=== PATIENT | male | born 1935 | race Caucasian/White ===

== ENCOUNTER → 2016-04-22 | Outpatient (CLI) | payer MEDICARE, OTHER ==
[~2016-04-22] MED LIST: AC500T PO; AMLO5TAB2 PO; ASP81CT PO; ASP81TEC PO; CALC-80; CEFD300C3; CYCL10TA9 PO; DCS100C PO; DIPH25TA82 PO; DOXY100C2 PO; ENAL10TA PO; ENAL20TA; ENAL20TA PO; EZET10TA5 PO; HYDR-2890 PO; MTP25TSR PO; NAPR-243 PO; OMEP40CA36 PO; OMG1KC; OMG1KC PO; OSLT75CRX PO; OXYC-12 PO; POTA99TA4; PSYL1PAC15 PO; SULF1TAB38 PO; TICA90TA PO; TRM50T PO; [UNRECOGNIZED DRUG - CODE]; [UNRECOGNIZED DRUG - OTHER]; [UNRECOGNIZED DRUG - OTHER]; [UNRECOGNIZED DRUG - OTHER]; cod liver oil
--- OUTSIDE RECORDS SUMMARY | 2016-04-22 11:08 | XMS REPORT | Continuity of Care Document ---
Author Author [facility] Organization [facility] Address Unknown Phone Unavailable Care Team Providers Care Permit Review Assistant Name Role Phone PCP Unavailable Source Comments Some departments are not documenting in the electronic medical record. If you do not see the information that you expected, contact Release of Information in the Health Information Management department at [phone] for further assistance in locating additional records.[facility] Active Allergies and Adverse Reactions Allergen Noted Date Severity Reactions Comments Aspirin 06/28/2011 ITCHING Tolerates lower doses and tolerates Aleve. Avelox 07/17/2011 UNKNOWN Pt cannot recall reaction but states he is allergic. Azithromycin 07/17/2011 STOMACH UPSET After several days of taking it. Biaxin 06/28/2011 UNKNOWN Pt cannot recall reaction but states he is allergic. Ceftin 06/28/2011 UNKNOWN Cefuroxime 06/28/2011 UNKNOWN Pt cannot recall reaction but states he is allergic. Codeine 06/28/2011 HALLUCINATIONS Darvocet 06/28/2011 HALLUCINATIONS Demerol 06/28/2011 HALLUCINATIONS Erythromycin 06/28/2011 UNKNOWN Metoprolol 07/17/2011 STOMACH UPSET, DIZZINESS Morphine 07/17/2011 SEE COMMENTS Urinary retention and vomiting, tolerates in small amounts, tolerates Fentanyl. Niacin 06/28/2011 UNKNOWN Nsaids (Non-Steroidal 07/17/2011 ITCHING Tolerates Aleve and Anti-Inflammatory Drug) tolerated Vioxx in the past. Plavix 07/17/2011 NAUSEA AND VOMITING, DIZZINESS Ryzolt 07/17/2011 SHORTNESS OF BREATH, ANGIOEDEMA Vjlkdij-Hdr-Aiv Reductase 06/28/2011 MUSCLE PAIN Inhibitors Tricor 06/28/2011 UNKNOWN Zetia 07/17/2011 ITCHING Current Medications Prescription Sig. Disp. Refills Start End Date Status Date Aspirin 81 mg Tab Take 1 Tab by mouth Active daily. Pt states aspirin makes him itch. diphenhydrAMINE Take 25 mg by mouth at Active (BENADRYL) 25 mg capsule bedtime as needed. Pt states he takes 1 tablet every 3 days. ACETAMINOPHEN (TYLENOL Take 650 mg by mouth Active ARTHRITIS PO) three times daily as needed. Active Problems Problem Noted Date Drug reaction 07/05/2011 Overview: All his medication reactions are intolerances or may be delayed hypersensitivity reactions, but none are immediate hypersensitivity reactions except for Tramadol and possibly some of the antibiotic allergies. Therefore none of them would be amenable to desensitization efforts. Demerol, Darvocet, and Codeine cause hallucinations. Morphine in large doses cause urinary retention, tolerates in small amounts and Fentanyl. Ryzolt (Tramadol) causes angioedema and difficulty breathing. Zetia and ASA (NSAIDs except Aleve and Vioxx) cause itching. Azithromycin causes GI upset. Plavix causes nausea and dizziness. Avelox, Cefuroxime, and Biaxin cause reactions that he cannot recall. Statins cause myalgias. Metoprolol causes dizziness and GI upset after two to three doses. - We will request records from his prior hospitalization for pacer implantation to find out more details about his reactions. Itching, dizziness, and GI upset with anti-hypertensives, plavix, and ASA. - Will try Zyrtec daily to control itching. - Will take his BP when he is dizzy again to see if this is anaphylactic hypotension causing these symptoms (no documentation of this per the patient) - Could try Prasugrel instead of Plavix if he requires a stent placement in the future as their is no documentation cross-reactivity of Plavix and Prasugrel (unlike Ticlid). - Would recommend avoidance of all triggering medications of allergies and intolerances, using alternatives whenever possible. Social History Tobacco Use Types Packs/Day Years Used Date Never Smoker Smokeless Tobacco: Never Used Last Filed Vital Signs Vital Sign Reading Time Taken Blood Pressure 126/74 07/05/2011 11:18 AM CDT Pulse 70 07/05/2011 11:18 AM CDT Temperature 36.1 C (96.9 F) 07/05/2011 11:06 AM CDT Respiratory Rate 18 07/05/2011 11:06 AM CDT Height 1.702 m (5' 7") 07/05/2011 11:06 AM CDT Weight 85.186 kg (187 lb 12.8 07/05/2011 11:06 AM CDT oz) Body Mass Index 29.41 07/05/2011 11:06 AM CDT Oxygen Saturation - - Plan of Care Health Maintenance Due Date Last Done Comments Physical (Comprehensive) 1941 Exam Pertussis Vaccine 1945 Tetanus Vaccine 11/19/1951 Shingles Vaccine 1994 Prevnar/Pneumovax (#1) 11/19/1999 Influenza Vaccine 11/29/2014 Results from Last 3 Months Not on file
--- NOTE | 2016-04-22 11:56 | Diagnostic Imaging Report ---
Indication: Lower respiratory infection PA and lateral chest There is a dual-chamber pacemaker. Heart size and pulmonary vascularity are normal. Lungs are clear. There are no effusions or pneumothoraces. Impression: No acute abnormalities in the chest Dictated by: Dictated on workstation # [id number]
== END ==
LOC: RAD 11:04
PROVIDERS: ATTEND Nurse Practitioner Family
DX: J18.9 Pneumonia, unspecified organism (principal)
CPT/HCPCS: 71020

== ENCOUNTER → 2018-05-14 | Outpatient (CLI) | payer MEDICARE, OTHER ==
[~2018-05-14] VITALS: Ht 170.2 cm; Wt 77.1 kg
[~2018-05-14] MED LIST changes: +CATHETER FLUSH 10 ML SYR IV PRN; +REGADENOSON 0.4 MG/5 ML SYR (LEXISCAN) IV ONE
[2018-05-14 08:54] VITALS: BP 150/80
[2018-05-14 08:57] VITALS: BP 147/85
[2018-05-14 08:58] VITALS: BP 145/67
--- NOTE | 2018-05-14 13:11 | Cardiology Stress Test Report ---
Stress Test Report Date of Procedure/Referring: PCP Kishan Sims MD Admitting Physician Imtiaz Solomon MD Baseline Blood Pressure: Blood Pressure Systolic: 145 Blood Pressure Diastolic: 67 Summary & Conclusion: Summary: The patient was brought to the stress lab after informed consent was taken. Stress test was performed according to the Lexiscan protocol. 0.4 mg of IV Lexiscan was given. Low-grade exercise was performed. Baseline EKG showed sinus rhythm at BPM. Initial blood pressure was mmHg. Maximum heart rate was bpm and blood pressure mmHg. Patient did not have any chest pain, arrhythmias or ST segment changes during the stress test. mCi of Myoview were given for rest imaging and mCi of Myoview given for stress imaging. Transient ischemic dilatation score , EF percent. Normal wall motion. Normal myocardial perfusion imaging during rest and stress. Conclusion: Pharmacological stress test was negative for ischemia. Normal LV function with no wall motion abnormalities. Normal myocardial perfusion imaging during rest and stress. Kishan SIMS MD May 14, 2018 13:11
== END ==
LOC: CARD 06:49
PROVIDERS: ATTEND Internal Medicine Interventional Cardiology
DX: I25.10 Atherosclerotic heart disease of native coronary artery without angina pectoris (principal); I49.5 Sick sinus syndrome; I44.2 Atrioventricular block, complete; R06.09 Other forms of dyspnea; Z95.0 Presence of cardiac pacemaker
CPT/HCPCS: 78452; 93017

== ENCOUNTER → 2018-05-20 | Outpatient (CLI) | payer MEDICARE, OTHER ==
[~2018-05-20] MED LIST changes: -CATHETER FLUSH 10 ML SYR IV PRN; -REGADENOSON 0.4 MG/5 ML SYR (LEXISCAN) IV ONE
== END ==
LOC: CARD 10:17
PROVIDERS: ATTEND Internal Medicine Interventional Cardiology
DX: I25.10 Atherosclerotic heart disease of native coronary artery without angina pectoris (principal); I49.5 Sick sinus syndrome; I44.2 Atrioventricular block, complete; R06.09 Other forms of dyspnea; R42 Dizziness and giddiness; Z95.0 Presence of cardiac pacemaker
CPT/HCPCS: 93306

== ENCOUNTER 2018-06-11 08:39 | Day surgery (SDC) | payer MEDICARE, OTHER ==
[2018-06-11] VITALS (9 sets, daily range): BP systolic 136–174; BP diastolic 67–82
[~2018-06-11] VITALS: Ht 170.2 cm; Wt 78.0 kg
[2018-06-11] MEDS ORDERED: HEParin 1000 UNIT/ML (10ML VIAL) FOR BOLUS ONE (08:45)
[2018-06-11] MEDS ORDERED: LIDOCAINE 1% INJ 20 ML 20 ML VIAL ONE (08:45)
[2018-06-11] MEDS ORDERED: NS IV 1000 ML 3,000 ML ONE (08:45)
[2018-06-11] MEDS ORDERED: NS IV 1000 ML 1,000 ML IV SCH ×2 (09:00→12:17)
[2018-06-11 09:11] LABS: HEMOGLOBIN 13.6 G/DL (13.3-17.7); MEAN PLATELET VOLUME 10.1 FL (7.4-10.4); RED CELL DISTRIBUTION WIDTH 14.2 % (10.0-14.5); WHITE BLOOD COUNT 5.1 10^3/uL (4.3-11.0)
[2018-06-11] MEDS ORDERED: METO50TA15 PO (09:14)
[2018-06-11] MEDS ORDERED: ENAL10TA PO (09:14)
[2018-06-11 09:28] LABS: ALBUMIN 4.3 GM/DL (3.2-4.5); BILIRUBIN,TOTAL 1.1 MG/DL (0.1-1.0); CALCIUM 9.4 MG/DL (8.5-10.1); CREATININE SERUM 1.39 MG/DL (0.60-1.30); POTASSIUM 4.5 MMOL/L (3.6-5.0); TOTAL PROTEIN 7.3 GM/DL (6.4-8.2)
[2018-06-11] MEDS ORDERED: CARB1CAP PO (09:29)
[2018-06-11 09:30] LABS: PROTHROMBIN TIME PATIENT 13.5 SEC (12.2-14.7)
[2018-06-11] MEDS ORDERED: MIDAZOLAM 5 MG/5 ML (VERSED) VIAL ONE (11:04)
[2018-06-11] MEDS ORDERED: NITRO DRIP 25000 MCG/D5W 250 ML IV ONE (11:05)
[2018-06-11] MEDS ORDERED: fentaNYL INJECTION 100 MCG/2 ML AMP ONE (11:05)
[2018-06-11] MEDS ORDERED: VERAPAMIL 5 MG/2 ML (CALAN) VIAL IV ONE (11:05)
--- NOTE | 2018-06-11 12:15 | Cardiac Procedure Note-CS/ASA ---
Pre-Procedure Note Pre-Op Procedure Note H&P Reviewed The H&P was reviewed, patient examined and no changes noted. Date H&P Reviewed: Jun 11, 2018 Time H&P Reviewed: 11:00 Conscious Sedation Pre-Proced Time 11:00 ASA Score 3 For ASA 3 and 4: Consider anesthesia and medical clearance. Also, for patients with a history of failed moderate sedation consider anesthesia. Airway Lungs Heart ASA score ASA 1: a normal healthy patient ASA 2: a patient with a mild systemic disease (mid diabetes, controlled hypertension, obesity ASA 3: a patient with a severe systemic disease that limits activity (angina , COPD, prior Myocardial infarction) ASA 4: a patient with an incapacitating disease that is a constant threat to life (CHF, renal failure) ASA 5: a moribund patient not expected to survive 24 hrs. (ruptured aneurysm) ASA 6: a declared brain- patient whose organs are being harvested. For emergent operations, add the letter E after the classification Mallampati Classification Grade 1 Sedation Plan Analgesia, Amnesia, Plan communicated to team members, Discussed options with patient/fam, Discussed risks with patient/fam The patient is an appropriate candidate to undergo the planned procedure, sedation, and anesthesia. The patient immediately re-assessed prior to indication. Kishan LOERA MD Jun 11, 2018 12:15
--- NOTE | 2018-06-11 12:16 | Coronary Angiography Report ---
Coronary Angiography Report DATE OF PROCEDURE: 06/11/18 INDICATION: Shortness of breath, abnormal nuclear stress test. PREOPERATIVE DIAGNOSIS: Shortness of breath, abnormal nuclear stress test. POSTOPERATIVE DIAGNOSIS: Mild CAD. HISTORY: This is a 82-year-old gentleman who has previous history of CAD and stents. He has mild shortness of breath and an abnormal nuclear stress test. Therefore, the patient was scheduled for coronary angiography. PROCEDURES PERFORMED: 1.Coronary angiography. 2.Left heart catheterization. 3. Aortic arch angiogram. COMPLICATIONS: None. SPECIMENS: None. ESTIMATED BLOOD LOSS: 10 mL ANESTHESIA: Conscious sedation ANTICOAGULATION: IV heparin CONTRAST: 55 mL. FLUOROSCOPY: FLOUROSCOPY DOSE: 389 mgy. PROCEDURE DETAILS: The patient is a 82 male and was brought to the mill laborer after informed consent was taken. All the risks and complications were explained in detail; this included the risk of bleeding, vascular damage, stroke , MD and even . The patient was draped and prepped in the usual sterile fashion. Access was gained in the right radial artery with a 6 [place] sheath. Coronary angiography and left heart catheterization was performed with the [place] catheter. FINDINGS: 1.Left main: Patent. 2.LAD: Mild disease. Patent stent in the first diagonal artery. 3.Left circumflex artery: Mild disease. Patent stent in the mid left circumflex artery. 4.RCA: Mild disease. No focal stenosis is noted. 5.Left heart catheterization: LV pressure 114/4 mmHg. LVEDP 12 mmHg. Aortic pressure 112/60 mmHg. Normal LV function with no wall motion abnormality. No gradient across the aortic valve. 6. Aortic arch angiogram done to rule out aortic aneurysm or dissection. No significant aneurysm or dissection noted in the proximal ascending thoracic aorta. Patent proximal segments of the great arteries including brachycephalic artery, common carotid artery, left subclavian artery. CONCLUSIONS: Mild CAD with patent stents. Normal LV function with no wall motion abnormalities. Continue aggressive secondary prevention measures. Pretty Sims MD, FACP, FACC, [facility] Interventional Cardiology Kishan SIMS MD Jun 11, 2018 12:16
[2018-06-11] MEDS ORDERED: ATOR20TA49 PO (12:19)
--- NOTE | 2018-06-11 12:20 | Discharge Inst-Post CATH ---
Discharge Inst-CATH/EP Post Cardiac Cath/EP D/C Inst Follow Up/Plan Dr Sims in three to four weeks. CARDIAC CATH DISCHARGE INSTRUCTIONS *Hold Metformin for 48 hours post heart cath. ACTIVITY * Go Home directly and rest. * Limit activity of the leg (or wrist if it was used) for 7 days including aerobics, swimming, jogging, bicycling, etc. * Restrict stair-climbing for 7 days if possible, if not, climb up with your non -cath leg, then bring together on the same step. * Avoid lifting, pushing, pulling or excessive movement of the affected extremity for 7 days. * Customary sexual activity may be resumed after 2 days-use caution not to use a position that strains or causes pain to the affected extremity. * No driving for 24 hours. * NO SMOKING. * Avoid straining for bowel movements for 7 days. * Gentle walking on level ground is allowed. * Returning to work will depend on the type of procedure and the results. Your doctor will discuss this with you. CALL YOUR DOCTOR FOR ANY OF THE FOLLOWING: *If bleeding from the puncture site occurs- Apply gentle pressure to site with clean cloth and call your doctor or EMS. * If a knot or lump forms under the skin, increases in size, or causes pain. * If bruising appears to be worsening or moving further down your leg instead of disappearing. * Temperature above 101 F. CARE OF YOUR GROIN INCISION; * Bruising or purple discoloration of the skin near the puncture site is common. * You may shower only, no bathtub bathing for 5 days. Be careful to avoid slipping as your leg may feel stiff. * If a closure device was used on your femoral artery, please see the attached guide regarding care of the device and your leg. * Leave the dressing on, until removed by office staff. CARE OF YOUR WRIST INCISION; * Bruising or purple discoloration of the skin near the puncture site is common. * You may shower. * DO NOT submerge wrist. * Leave dressing on, until removed by office staff.. Kishan SIMS MD Jun 11, 2018 12:20
--- NOTE | 2018-06-11 12:22 | Cardiology Discharge Summary ---
Diagnosis/Chief Complaint Date of Admission 06/11/2018 Date of Discharge 06/11/2018 Admission Diagnosis CAD, shortness of breath Final/Discharge Diagnosis CAD, shortness of breath Chief Complaint/HPI Chief Complaint/HPI This is a 82-year-old gentleman with previous history of PCI, pacemaker, presents with shortness of breath. Nuclear stress test showed an EF of 30 percent with apical defect. Coronary angiography was recommended. Discharge Summary Procedures Coronary angiography showed patent stent in the first diagonal artery and left circumflex artery. No significant severe disease noted. Preserved LV function with LVEDP of 14 mmHg. Discharge Physical Examination Unremarkable Hospital Course Was the Problem List Reviewed?: Yes Stable. Pending Labs Laboratory Tests 06/11/18 09:01: White Blood Count 5.1, Red Blood Count 4.28, Hemoglobin 13.6, Hematocrit 40, Mean Corpuscular Volume 94, Mean Corpuscular Hemoglobin 32, Mean Corpuscular Hemoglobin Concent 34, Red Cell Distribution Width 14.2, Platelet Count 170, Mean Platelet Volume 10.1, Prothrombin Time 13.5, INR Comment 1.0, Activated Partial Thromboplast Time 27, Sodium Level 139, Potassium Level 4.5, Chloride Level 107, Carbon Dioxide Level 24, Anion Gap 8, Blood Urea Nitrogen 21, Creatinine 1.39, Estimat Glomerular Filtration Rate 49, BUN/Creatinine Ratio 15 , Glucose Level 98, Calcium Level 9.4, Corrected Calcium 9.2, Total Bilirubin 1.1, Aspartate Amino Transf (AST/SGOT) 17, Alanine Aminotransferase (ALT/SGPT) 6 , Alkaline Phosphatase 57, Total Protein 7.3, Albumin 4.3 Discussion & Recommendations Discussion Discussed with the family. Continue medical therapy. I will start Lipitor since LDL is 192 and there are history of CAD. Follow up appt.: Dr. Sims in 2-4 weeks. Dicharge Diet: Cardiac Diet Activity as Tolerated: Yes Home Medications Reviewed patient Home Medication Reconciliation performed by pharmacy medication reconciliations prepress technician and/or nursing. Patients Allergies have been reviewed. Discharge Home Medications: Reviewed and agree with Discharge Medication list on patient's Discharge Instruction sheet Condition at discharge Stable. Instructions to patient/family Dr Sims in three to four weeks. Kishan SIMS MD Jun 11, 2018 12:22
[2018-06-11] MEDS ORDERED: PATIENT MAY USE OWN MEDS, ALL PO SCH (12:30)
[2018-06-11] MEDS ORDERED: FLU QUADRIvalent (5+ YOA) 2018-2019 (AFLURIA) 0.5 ML IM ONE (13:45)
[2018-06-12] MEDS ORDERED: ASPIRIN E.C. 81 MG (ECOTRIN) TAB PO SCH (09:00)
== END 2018-06-11 15:20 | disposition home or self-care (01) ==
LOC: CATH 08:39 → SDC 12:33 → CATH 15:20
PROVIDERS: ATTEND Internal Medicine Interventional Cardiology
DX: I25.10 Atherosclerotic heart disease of native coronary artery without angina pectoris (principal); R94.39 Abnormal result of other cardiovascular function study; I11.0 Hypertensive heart disease with heart failure; I50.9 Heart failure, unspecified; I48.0 Paroxysmal atrial fibrillation; E78.5 Hyperlipidemia, unspecified; I73.9 Peripheral vascular disease, unspecified; G20 Parkinson's disease; R42 Dizziness and giddiness; Z79.02 Long term (current) use of antithrombotics/antiplatelets; Z79.82 Long term (current) use of aspirin; Z79.899 Other long term (current) drug therapy; Z95.5 Presence of coronary angioplasty implant and graft; Z95.0 Presence of cardiac pacemaker
CPT/HCPCS: 36221; 36415; 80053; 85027; 85610; 85730; 87081; 93005; 93458

== ENCOUNTER → 2018-10-19 | Outpatient (CLI) | payer MEDICARE, OTHER ==
[~2018-10-19] MED LIST changes: +ATOR20TA49 PO; +CARB1CAP PO; +METO50TA15 PO
--- NOTE | 2018-10-19 11:55 | Diagnostic Imaging Report ---
EXAMINATION: Modified barium swallow INDICATION: Dysphagia The study was performed in the presence of the speech pathologist, Nette. There are no prior exams available for comparison. The patient was given barium in different consistencies to swallow. This included thin barium, barium on a cracker, barium and applesauce and on a banana and barium intermixed with ground beef. The patient was able to swallow the materials without difficulty. There is no aspiration or penetration. IMPRESSION: There is no evidence for aspiration or penetration. The swallowing mechanism appears to be intact. Dictated by: Dictated on workstation # [id number]
== END ==
LOC: RAD 09:51
PROVIDERS: ATTEND Family Medicine
DX: R13.10 Dysphagia, unspecified (principal)
CPT/HCPCS: 74230

== ENCOUNTER 2018-10-29 07:44 | Day surgery (SDC) | payer MEDICARE ==
[2018-10-29] VITALS (8 sets, daily range): BP systolic 113–159; BP diastolic 65–80
[2018-10-29] MEDS ORDERED: LIDOCAINE 1% INJ 20 ML 20 ML VIAL ONE ×2 (07:49)
[2018-10-29] MEDS ORDERED: HEParin (CATH LAB) 1,000 ML IV ONE (07:49)
[2018-10-29] MEDS ORDERED: NS IV 1000 ML 0 ML ONE (07:50)
[2018-10-29] MEDS ORDERED: NS IV 1000 ML 1,000 ML IV ONE (07:51)
[2018-10-29] MEDS ORDERED: BACITRACIN INJECTION 50,000 UNIT, SODIUM CHLORIDE 0.9% IRRIGATIO 500 ML IR ONE ×2 (08:00)
[2018-10-29] MEDS ORDERED: ceFAZolin INJECTION 1,000 MG VIAL IV ONE (08:00)
[2018-10-29 08:16] LABS: HEMOGLOBIN 13.4 G/DL (13.3-17.7); MEAN PLATELET VOLUME 10.9 FL (7.4-10.4); RED CELL DISTRIBUTION WIDTH 15.2 % (10.0-14.5)
[2018-10-29 08:37] LABS: ALBUMIN 4.1 GM/DL (3.2-4.5); BILIRUBIN,TOTAL 0.9 MG/DL (0.1-1.0); CALCIUM 9.5 MG/DL (8.5-10.1); CREATININE SERUM 1.47 MG/DL (0.60-1.30); POTASSIUM 4.8 MMOL/L (3.6-5.0)
[2018-10-29] MEDS ORDERED: ceFAZolin 2 GM/NS 50 ML IVPB IV ONE (08:45)
[2018-10-29] MEDS ORDERED: MIDAZOLAM 5 MG/5 ML (VERSED) VIAL ONE ×2 (10:39→11:18)
[2018-10-29] MEDS ORDERED: fentaNYL INJECTION 100 MCG/2 ML AMP ONE ×2 (10:39→11:19)
[2018-10-29] MEDS ORDERED: HYDROmorphone 2 MG/ML VIAL (DILAUDID) ONE (12:02)
[2018-10-29] MEDS ORDERED: proPOfol 200 MG/20 ML (DIPRIVAN) VIAL IV ONE (12:11)
[2018-10-29] MEDS ORDERED: NS IV 1000 ML 1,000 ML ONE (12:48)
[2018-10-29] MEDS ORDERED: NEO/POLY/BAC (NEOSPORIN) OINT 15 GM TUBE ONE (13:05)
--- NOTE | 2018-10-29 13:23 | Cardiac Procedure Note-CS/ASA ---
Pre-Procedure Note Pre-Op Procedure Note H&P Reviewed The H&P was reviewed, patient examined and no changes noted. Date H&P Reviewed: Oct 29, 2018 Time H&P Reviewed: 10:00 Conscious Sedation Pre-Proced Time 10:00 ASA Score 3 For ASA 3 and 4: Consider anesthesia and medical clearance. Also, for patients with a history of failed moderate sedation consider anesthesia. Airway Lungs Heart ASA score ASA 1: a normal healthy patient ASA 2: a patient with a mild systemic disease (mid diabetes, controlled hypertension, obesity ASA 3: a patient with a severe systemic disease that limits activity (angina, COPD, prior Myocardial infarction) ASA 4: a patient with an incapacitating disease that is a constant threat to life (CHF, renal failure) ASA 5: a moribund patient not expected to survive 24 hrs. (ruptured aneurysm) ASA 6: a declared brain- patient whose organs are being harvested. For emergent operations, add the letter E after the classification Mallampati Classification Grade 1 Sedation Plan Analgesia, Amnesia, Plan communicated to team members, Discussed options with patient/fam, Discussed risks with patient/fam The patient is an appropriate candidate to undergo the planned procedure, sedation, and anesthesia. The patient immediately re-assessed prior to indication. Kishan LOERA MD Oct 29, 2018 13:23
[2018-10-29] MEDS ORDERED: NS IV 1000 ML 1,000 ML IV SCH (13:43)
--- NOTE | 2018-10-29 13:43 | BiVentricular ICD Implantation ---
BiVentricular ICD Implant DATE OF SERVICE: 10/29/18 PROCEDURE: UPGRADE TO BIVENTRICULAR-PPM CARDIAC TOOTH CLERK: Pretty Sims MD INDICATION: 1. Moderate LV systolic dysfunction with an EF of 40 percent on aggressive goal-directed medical therapy for at least 3 months. 2. 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 3. [place] Heart Association class II/III heart failure. PREOPERATIVE DIAGNOSES: 1. Moderate LV systolic dysfunction with an EF of 40 percent on aggressive goal-directed medical therapy for at least 3 months. 2. 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 3. [place] Heart Association class II/III heart failure. POSTOPERATIVE DIAGNOSES: 1. Successful biventricular PPM upgrade. HISTORY: This is a 82 male, with previous dual-chamber permanent pacemaker. Pacemaker dependent with RV pacing of >99 percent. [place] Heart Association class 2/3 symptoms. On goal-directed medical therapy. Upgrade to biventricular PPM is recommended. PROCEDURE PERFORMED: 1. left upper extremity venogram. 2. Pocket revision. 3. Upgrade to biventricular pacemaker device. Previous dual-chamber permanent pacemaker generator taken out. 4. New biventricular/CS lead implantation. 5. CS venogram. COMPLICATIONS: None. ESTIMATED BLOOD LOSS: 40 mL. SPECIMENS: None. ANESTHESIA: Conscious sedation. ORAL ANTICOAGULATION: None. FLUOROSCOPY TIME: 22.4 minutes. FLUOROSCOPY DOSE: 162 MGY. CONTRAST DOSE: 25 mL PROCEDURE DETAILS: Informed consent was taken before the procedure was started. All the risks and complications were explained in detail which included vascular damage, pneumothorax, cardiac perforation, bleeding and infection. Once the patient accepted all the risks and complications, he was brought to the EP lab. The patient was given 2 gram of Ancef before the procedure. He was draped and prepped in the usual sterile fashion. A venogram was done from the left upper extremity to rule out any significant venous stenosis since the patient had previously 3 leads. Venogram did not show any severestenosis in the subclavian vein. A left-sided incision was performed just below the clavicle and dissection was carried down to the pectoralis fascia. The previous generator and the leads were freed from tissue using a PlasmaBlade. We then under fluoroscopic guidance, the axillary vein was accessed once and one J-tip wire were placed via the axillary vein into the IVC. We had difficulty introducing the CS sheath therefore numerous introducers/dilators were used before we were able to get a regular extended hook sheath into the right atrium. However we were not able to cannulate the CS with the 9F regular extended hook sheath. Therefore we exchanged to a extra-large extended hook sheath. We used a J- tipped glide wire with which we were able access the CS and one of the posterior lateral branches. The sheath was advanced into the CS. A CS venogram was done which demonstrated that we were subselected in the posterior lateral branch. we then took a choice extra-support coronary wire and were able to advance into the most lateral apical aspect of the posterior lateral vein. We then took a Medtronic Quad CS lead with the Choice PT wire and placed it into the coronary sinus. The CS lead was checked, which showed excellent sensitivity and threshold and no diaphragmatic stimulation. The wire was therefore taken out and the sheath was slit. The lead was still in its original place. The LV lead was then sutured to the pectoralis fascia with 2.0 nonabsorbable sutures. We then revised the pocket .once the pocket was created, we flushed with normal saline. The RV and RV leads were detached from the previous PPM generator. The RV, RA and LV leads were attached to a medtronic BiV PPM. The device was placed in the pocket. The wound was closed in 2 layers. The first layer was 6 interrupted 2-0 absorbable sutures. The next layer with which we closed the skin was a 4-0 silk. The skin was cleaned and Steri-Strips were placed and a bandage was placed on top. The patient was transferred to the intensive care unit unit in stable condition. DEVICE INFORMATION: SPECIAL MACHINE OPERATOR P [id number] Solara quad SPECIAL MACHINE OPERATOR P [facility]. Model number W4TR03, serial number [id number] removed pacemaker product number 2210, Accent DR, serial number [id number], [place], implant date 09/12/2014. LEADS: 1. The right atrial lead: model number 5568, serial number [id number], Medtronic. 2. RV PPM lead: model number 2088 TC, length 52, serial number [id number], [place], existing. 3. LV CS lead: model number 631778, length 88, serial number [id number], Medtronic. Placed 10/29/2018. PERIOPERATIVE DEVICE INTERROGATION: 1. LV, LV1 to LV2. capture threshold 0.625 V at 0.4 ms. Impedance 720 ohms. POSTOPERATIVE DEVICE INTERROGATION: 1. Right atrium, P waves 0.9 mV, pacing impedance 361 ohms, pacing threshold 3 V at 0.4 ms. 2. RV R-wave pacemaker dependent. Pacing impedance 361 ohms. Pacing threshold 1 V at 0.4 ms. 3. LV impedance 741 ohms. Capture threshold 0.5 V at 0.4 ms. IMPRESSION AND CONCLUSION: 1. Successful left-sided upgrade to biventricular pacemaker. 2. The patient will be transferred to the intensive care unit. He will continue on 3 more dosages of IV Ancef. 3. Postoperative EKG will be performed. 4. Chest x-ray will be done to rule out pneumothorax. 5. Device interrogation will be performed again in the morning. Pretty Sims MD, [facility], CCDS Cardiac Electrophysiology Kishan SIMS MD Oct 29, 2018 13:43
[2018-10-29] MEDS ORDERED: PATIENT MAY USE OWN MEDS, ALL PO SCH (13:45)
--- NOTE | 2018-10-29 13:45 | Anesthesia-Procedure Note ---
Procedures/Interventions Procedure Start/Stop/Diagnosis Date of Procedure: Oct 29, 2018 Start Time: 12:30 Referring Physician: Dr Sims Preprocedural Diagnosis: Cardiomyopathy Brief History Anesthesia Note ([id number]) Called to matlab developer for a rescue sedation during pacemaker placement. Pt was already given midazolam 10 mg IV and fentanyl 200 mcg IV in divided doses prior to my arrival. Brief history obtained from Dr Sims. Propofol 120 mg in divided doses for the remainder of the procedure. Spontaneous ventilation throughout and VS remained stable. Pt tolerated the procedure well. Stop Time: 13:33 Postprocedural Diagnosis: same ANN MARIE/Cardioversion Anesthesia Type: MAC -- rescue sedation ASA Class: 3 Medications Propofol 120 mg IV given by me. Midazolam 10 mg IV and Fentanyl 200 mcg IV given prior to my arrival. Monitors and Equipment: BP Cuff - Right, Continuous EKG, End Tidal CO2, IV, Pulse Oximeter, V Lead EKG PORTIA MARQUEZ DO Oct 29, 2018 13:45
--- NOTE | 2018-10-29 14:18 | Anesthesia-General Post-Op ---
MAC Patient Condition Mental Status/LOC: Same as Preop Cardiovascular: Satisfactory Nausea/Vomiting: Absent Respiratory: Satisfactory Pain: Controlled Complications: Absent Post Op Complications Complications None Follow Up Care/Instructions Patient Instructions None needed. Anesthesiology Discharge Order Discharge Order Patient is doing well, no complaints, stable vital signs, no apparent adverse anesthesia problems. PORTIA MARQUEZ DO Oct 29, 2018 14:18
--- NOTE | 2018-10-29 15:16 | Diagnostic Imaging Report ---
INDICATION: Status post pacemaker placement. TIME OF EXAM: 02:00 p.m. Correlation is made with prior study of 04/22/2016. FINDINGS: Cardiac pacemaker is in place. Lungs are clear. There is no infiltrate or failure. There are calcified nodules in the right lung consistent with granulomas. There is no effusion or pneumothorax. IMPRESSION: No acute cardiopulmonary process is detected. Dictated by: Dictated on workstation # [id number]
[2018-10-29] MEDS: ceFAZolin INJECTION 1,000 MG in WATER (STERILE) FOR INJECTION 10 ML IV SCH (16:21)
--- NOTE | 2018-10-29 18:50 | NUR ---
Dr. Sims informed this RN to order all pt's previous home meds at this time.
[2018-10-29] MEDS ORDERED: ENALAPRIL 10 MG (VASOTEC) TAB PO SCH ×2 (21:00)
[2018-10-29] MEDS ORDERED: ASPIRIN 81 MG CHEW (CHILDREN'S ASA) PO SCH ×2 (21:00)
[2018-10-29] MEDS ORDERED: meTOprolol TARTRATE 50 MG (LOPRESSOR) TAB PO SCH (21:00)
[2018-10-30 00:58] VITALS: BP 104/60
[2018-10-30] MEDS: ceFAZolin INJECTION 1,000 MG in WATER (STERILE) FOR INJECTION 10 ML IV SCH ×2 (00:58→07:58)
[2018-10-30 04:00] VITALS: BP 105/60
[2018-10-30 05:25] LABS: HEMOGLOBIN 10.6 G/DL (13.3-17.7); MEAN PLATELET VOLUME 11.1 FL (7.4-10.4); RED CELL DISTRIBUTION WIDTH 14.9 % (10.0-14.5); WHITE BLOOD COUNT 5.9 10^3/uL (4.3-11.0)
[2018-10-30 05:42] LABS: ALBUMIN 3.2 GM/DL (3.2-4.5); BILIRUBIN,TOTAL 0.4 MG/DL (0.1-1.0); CALCIUM 8.5 MG/DL (8.5-10.1); CREATININE SERUM 1.28 MG/DL (0.60-1.30); POTASSIUM 4.6 MMOL/L (3.6-5.0); TOTAL PROTEIN 5.5 GM/DL (6.4-8.2)
[2018-10-30] MEDS ORDERED: OMEPRAZOLE 40 MG CAPSULE PO SCH (07:00)
[2018-10-30] MEDS ORDERED: PANTOPRAZOLE 40 MG (PROTONIX) TAB PO SCH (07:00)
[2018-10-30 08:00] VITALS: BP 108/64
--- NOTE | 2018-10-30 08:00 | NUR ---
Pt wishes to take morning medications when he returns home this am.
[2018-10-30] MEDS ORDERED: [UNRECOGNIZED DRUG - OTHER] PO SCH (09:00)
[2018-10-30] MEDS ORDERED: CARBIDOPA PO SCH (09:00)
[2018-10-30] MEDS ORDERED: NON-FORMULARY MEDICATION 1 EA EA (Omeprazole 40 MG) PO SCH (09:00)
[2018-10-30] MEDS ORDERED: TICAGRELOR 90 MG TABLET (BRILINTA) PO SCH (09:00)
[2018-10-30] MEDS ORDERED: LEVODOPA PO SCH (09:00)
--- NOTE | 2018-10-30 09:02 | NUR ---
Initial visit with pt (goes by "Ismael") and his , Christelle. The pt is Buddhist and said he would welcome communion, however anticipates that he will be discharged this morning.
[2018-10-30] MEDS ORDERED: CEPH-507 PO (09:30)
--- NOTE | 2018-10-30 19:07 | Cardiology Discharge Summary ---
Diagnosis/Chief Complaint Date of Admission 10/29/2018 Date of Discharge 10/30/2018 Admission Diagnosis Previous dual-chamber permanent pacemaker, RV pacing over 99 percent, cardiomyopathy with an EF of 40 percent. Final/Discharge Diagnosis Successful upgrade to biventricular pacemaker. Chief Complaint/HPI Chief Complaint/HPI This is a 82 male, with previous dual-chamber permanent pacemaker. Pacemaker dependent with RV pacing of >99 percent. [place] [employer] class 2/3 symptoms. On goal-directed medical therapy. Upgrade to biventricular PPM is recommended. Discharge Summary Procedures Successful upgrade to a biventricular pacemaker. Discharge Physical Examination Upper chest examination did not reveal any significant hematoma or infection. Hospital Course Was the Problem List Reviewed?: Yes Chest x-ray did not reveal any pneumothorax. Device interrogation was within acceptable limits. Excellent LV lead capture threshold. Normal telemetry. Discussion & Recommendations Discussion Discharge took over 30 minutes to complete. Discharge instructions were discussed at length with the patient. I requested the patient to hold antiplatelet and oral anticoagulation for today and start tomorrow. Follow up appt.: Wound check with RN in one week. Dr. Sims. Device interrogation in one month. Dicharge Diet: Cardiac Diet Activity as Tolerated: Yes Home Medications Reviewed patient Home Medication Reconciliation performed by pharmacy medication reconciliations repair technician and/or nursing. Patients Allergies have been reviewed. Discharge Home Medications: Reviewed and agree with Discharge Medication list on patient's Discharge In struction sheet Condition at discharge Stable. Instructions to patient/family Discussed at length with the patient and family. Kishan SIMS MD Oct 30, 2018 19:07
== END 2018-10-30 09:54 | disposition home or self-care (01) ==
LOC: CATH 07:44 → ICU 14:18 → CATH 10-30 09:54
PROVIDERS: ATTEND Internal Medicine Interventional Cardiology
DX: I50.9 Heart failure, unspecified (principal); I44.2 Atrioventricular block, complete; I25.10 Atherosclerotic heart disease of native coronary artery without angina pectoris; I77.9 Disorder of arteries and arterioles, unspecified; I11.0 Hypertensive heart disease with heart failure; I73.9 Peripheral vascular disease, unspecified; I49.5 Sick sinus syndrome; I48.0 Paroxysmal atrial fibrillation; E87.5 Hyperkalemia; J32.9 Chronic sinusitis, unspecified; E78.5 Hyperlipidemia, unspecified; Z79.82 Long term (current) use of aspirin; Z79.899 Other long term (current) drug therapy; Z88.6 Allergy status to analgesic agent; Z88.5 Allergy status to narcotic agent; Z88.8 Allergy status to other drugs, medicaments and biological substances; Z88.1 Allergy status to other antibiotic agents; Z82.49 Family history of ischemic heart disease and other diseases of the circulatory system
CPT/HCPCS: 33222; 33225; 33233; 36415; 71045; 75820; 80053; 85027; 85610; 85730; 87081; 93005

== ENCOUNTER 2019-05-11 11:33 | Emergency (ER) | payer MEDICARE ==
[~2019-05-11] VITALS: Ht 170.1 cm; Wt 72.7 kg
[~2019-05-11 11:33] MED LIST changes: +CEPH-507 PO; +OMEP40CA27 PO; -OMEP40CA36 PO
[2019-05-11] MEDS ORDERED: ASPIRIN 81 MG CHEW (CHILDREN'S ASA) PO ONE (11:45)
--- NOTE | 2019-05-11 11:51 | ED Cardiac General ---
History of Present Illness General Stated Complaint: L ARM PAIN;HIGH BP Source: patient Exam Limitations: no limitations History of Present Illness Date Seen by Provider: May 11, 2019 Time Seen by Provider: 11:28 Initial Comments Patient [place] [facility] [place] with chief complaint that around 2:30 this morning he was awoken with some left shoulder and neck achy pain 2/10 at rest. He also has inability to lift his left arm above about 30 abduction. He does have a history of coronary disease with 3 stents and is followed by Dr. Sims. In October 2018, 6 months ago he had a extra lead placed on his pacemaker. 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 He had 3 pains of sharp pain over his left chest this morning when he woke up but they have not come back. They're not reproducible. He is not having any shortness of breath. He is not having any sweats nausea chills fever or cough. No COPD or shortness of breath. He does take blood pressure medicines and has a history of hyperlipidemia. He takes aspirin and Brilinta. Primary care at [facility]. He takes propranolol and 10 mg of enalapril. Because his blood pressure was elevated this morning at 180 systolic and took a second dose of enalapril. Allergies and Home Medications Allergies Coded Allergies: acetaminophen (Unverified Allergy, Mild, 03/17/09) cefuroxime (Unverified Allergy, Mild, 03/17/09) propoxyphene (Unverified Allergy, Mild, 03/17/09) aspirin (Verified Allergy, Unknown, TAKES AT HOME, 06/11/18) azithromycin (Verified Allergy, Unknown, 03/02/09) clarithromycin (Verified Allergy, Unknown, 03/02/09) codeine (Verified Allergy, Unknown, 03/02/09) erythromycin base (Verified Allergy, Unknown, 03/02/09) meperidine (Verified Allergy, Unknown, 03/02/09) morphine (Unverified Allergy, Unknown, 10/18/14) Uncoded Allergies: Z PACK (Allergy, Unknown, 10/18/14) Home Medications Amlodipine Besylate 5 Mg Tablet, 5 MG PO DAILY Prescribed by: BRITTNY VOSS on 05/11/19 1305 Aspirin 81 Mg Chew, 81 MG PO HS, (Reported) Carbidopa/Levodopa 1 Each Capsule.er, 1 EACH PO DAILY, (Reported) TAKES 1 TABLET DAILY FOR 5 DAYS (TODAY 06/11/18 IS LAST DAY FOR 1 TABLET) THEN INCREASE TO 2 TABLETS DAILY FOR 10 DAYS Enalapril Maleate 10 Mg Tablet, 10 MG PO BID, (Reported) Metoprolol Tartrate 50 Mg Tablet, 50 MG PO BID, (Reported) Omeprazole 40 Mg Capsule.dr, 40 MG PO DAILY, (Reported) Propranolol HCl 20 Mg Tablet, 20 MG PO BID Prescribed by: BRITTNY VOSS on 05/11/19 1305 Ticagrelor 90 Mg Tablet, 90 MG PO DAILY, (Reported) Patient Home Medication List Home Medication List Reviewed: Yes Review of Systems Review of Systems Constitutional: No chills, No fever EENTM: No Blurred Vision, No Double Vision Respiratory: Denies Cough, Denies Shortness of Air Cardiovascular: See HPI, Chest Pain; Denies Edema, Denies Irregular Heart Rate, Denies Lightheadedness, Denies Palpitations Gastrointestinal: Denies Abdomen Distended, Denies Abdominal Pain, Denies Constipated, Denies Diarrhea Genitourinary: Denies Burning, Denies Discharge, Denies Drainage Musculoskeletal: see HPI; No back pain; joint pain, neck pain Skin: No change in color, No pruritus, No rash Psychiatric/Neurological: Headache; Denies Numbness, Denies Paresthesia All Other Systems Reviewed Negative Unless Noted: Yes Past Hpcujua-Hvbpbq-Zfljow Hx Patient Social History Alcohol Use: Denies Use Recreational Drug Use: No Smoking Status: Never a Smoker 2nd Hand Smoke Exposure: Yes Recent Hopitalizations: Yes (rotator cuff bilaterally, 2003 or , PACEMAKER 2008) Immunizations Up To Date Tetanus Booster (TDap): Less than 5yrs Date of Pneumonia Vaccine: Nov 29, 2009 Date of Influenza Vaccine: Jan 13, 2014 Seasonal Allergies Seasonal Allergies: No Past Medical History Orthopedic, Pacemaker Respiratory: No Currently Using CPAP: No Currently Using BIPAP: No Cardiac: Yes (pacemaker/STENT) Coronary Artery Disease, High Cholesterol, Hypertension Neurological: No Parkinson's Disease Reproductive Disorders: No Benign Prostatic Hyperpl Gastrointestinal: Yes Abdominal Hernia Arthritis Cataract Cancer: Yes Skin Blood Disorders: No Family Medical History Heart Disease Physical Exam Vital Signs Vital Signs - First Documented 05/11/19 11:33 Temp 36.3 Pulse 79 Resp 18 B/P (MAP) 180/108 (132) Pulse Ox 97 O2 Delivery Room Air Capillary Refill : Height, Weight, BMI Height: 5'7.00" Weight: 172lbs. 0.0oz. 78.011946nc; 26.9 BMI Method:Stated General Appearance: No Apparent Distress, WD/WN HEENT: PERRL/EOMI, Pharynx Normal, Moist Mucous Membranes Neck: Full Range of Motion, Normal Inspection, Supple, Tender Lateral (Left side all levels), Other (no cervical lymphadenopathy) Respiratory: Chest Non Tender, Lungs Clear, Normal Breath Sounds, No Accessory Muscle Use, No Respiratory Distress Cardiovascular: Regular Rate, Rhythm, No Edema Gastrointestinal: Normal Bowel Sounds, Non Tender, Soft Extremity: Normal Capillary Refill, Normal Inspection, Other (tenderness to direct palpation over the acromioclavicular and anterior glenohumeral joint, left side. No crepitus and pain with passive as well as active range of motion. Abduction stops actively around 30 on the left arm. No tenderness or lack of range of motion in the left elbow. Trapezius mildly tender to palpation.) Neurologic/Psychiatric: Alert, Oriented x3 Skin: Normal Color, Warm/Dry Progress/Results/Core Measures Results/Orders Lab Results Laboratory Tests Test 05/11/19 11:50 Range/Units White Blood Count 5.5 4.3-11.0 10^3/uL Red Blood Count 4.32 L 4.35-5.85 10^6/uL Hemoglobin 14.0 13.3-17.7 G/DL Hematocrit 42 40-54 % Mean Corpuscular Volume 98 80-99 FL Mean Corpuscular Hemoglobin 32 25-34 PG Mean Corpuscular Hemoglobin Concent 33 32-36 G/DL Red Cell Distribution Width 15.8 H 10.0-14.5 % Platelet Count 152 130-400 10^3/uL Mean Platelet Volume 10.6 H 7.4-10.4 FL Neutrophils (%) (Auto) 52 42-75 % Lymphocytes (%) (Auto) 35 12-44 % Monocytes (%) (Auto) 11 0-12 % Eosinophils (%) (Auto) 2 0-10 % Basophils (%) (Auto) 0 0-10 % Neutrophils # (Auto) 2.9 1.8-7.8 X 10^3 Lymphocytes # (Auto) 1.9 1.0-4.0 X 10^3 Monocytes # (Auto) 0.6 0.0-1.0 X 10^3 Eosinophils # (Auto) 0.1 0.0-0.3 10^3/uL Basophils # (Auto) 0.0 0.0-0.1 10^3/uL Prothrombin Time 13.5 12.2-14.7 SEC INR Comment 1.0 0.8-1.4 Activated Partial Thromboplast Time 27 24-35 SEC D-Dimer 1.35 H 0.00-0.49 UG/ML Sodium Level 138 135-145 MMOL/L Potassium Level 4.4 3.6-5.0 MMOL/L Chloride Level 107 98-107 MMOL/L Carbon Dioxide Level 22 21-32 MMOL/L Anion Gap 9 5-14 MMOL/L Blood Urea Nitrogen 19 H 7-18 MG/DL Creatinine 1.47 H 0.60-1.30 MG/DL Estimat Glomerular Filtration Rate 46 BUN/Creatinine Ratio 13 Glucose Level 98 70-105 MG/DL Calcium Level 9.3 8.5-10.1 MG/DL Corrected Calcium 9.3 8.5-10.1 MG/DL Magnesium Level 1.9 1.6-2.4 MG/DL Total Bilirubin 0.6 0.1-1.0 MG/DL Aspartate Amino Transf (AST/SGOT) 24 5-34 U/L Alanine Aminotransferase (ALT/SGPT) 34 0-55 U/L Alkaline Phosphatase 79 40-136 U/L Myoglobin 64.3 10.0-92.0 NG/ML Troponin I < 0.028 <0.028 NG/ML B-Type Natriuretic Peptide 66.6 <100.0 PG/ML Total Protein 7.2 6.4-8.2 GM/DL Albumin 4.0 3.2-4.5 GM/DL My Orders Orders - BRITTNY VOSS Cbc With Automated Diff (05/11/19 11:42) Magnesium (05/11/19 11:42) Chest 1 View, Ap/Pa Only (05/11/19 11:42) Ekg Tracing (05/11/19 11:42) Comprehensive Metabolic Panel (05/11/19 11:42) Myoglobin Serum (05/11/19 11:42) Protime With Inr (05/11/19 11:42) Partial Thromboplastin Time (05/11/19 11:42) O2 (05/11/19 11:42) Monitor-Rhythm Ecg Trace Only (05/11/19 11:42) Ed Iv/Invasive Line Start (05/11/19 11:42) BNP (05/11/19 11:42) Fibrin Degradation Products (05/11/19 11:42) Aspirin Chewable Tablet (Baby Aspirin Ch (05/11/19 11:45) Shoulder, Left, 3 Views (05/11/19 12:02) Troponin I (05/11/19 11:50) Ed Iv/Invasive Line Start (05/11/19 12:30) Ns Iv 1000 Ml (Sodium Chloride 0.9%) (05/11/19 12:30) Sodium Chloride Flush (Catheter Flush Sy (05/11/19 12:45) Medications Given in ED Vital Signs/I&O 05/11/19 05/11/19 11:33 13:15 Temp 36.3 Pulse 79 60 Resp 18 18 B/P (MAP) 180/108 (132) 140/86 Pulse Ox 97 95 O2 Delivery Room Air Progress Progress Note #1: Time: 11:49 Progress Note His pain in his neck and shoulder seem to be primarily musculoskeletal, probably related to osteoarthritis. Because of his heart history and is recently placement in the last year with a chest x-ray give him some aspirin and obtain lab. Since his pain started at 2:30 in the morning if he was having a heart attack a troponin should be positive by now. Has not had any sharp pains in the chest since then. This pain is reproducible in his shoulders and the acromioclavicular joint as well as the glenohumeral joint. He does have limitation of range of motion. Shoulder x-ray would be ayala but without any trauma it's unlikely a fracture. Plan to interrogate his pacemaker. Coronary angiogram May [address] Sims: Patent left main artery with mild disease and a patent stent in the first diagonal artery. Left circumflex artery mild disease with a patent stent. RCA mild disease no focal stenosis. Aortic arch angiogram rules out aneurysm or dissection. Echocardiogram. May [address] Sims. EF 45-50% grade 1 diastolic dysfunction Progress Note #2: Time: 12:05 Progress Note [employer] called and said that all 3 leads look good he has about 4-1/2 years left on his generator and there have been no events. Progress Note #3: Time: 12:59 Progress Note After a long supported decision making process the patient has decided he would like to decrease his propranolol since he is having some side effects of beta blockers and he would like to restart the amlodipine which she was on 10 mg before. We'll put him on 5 mg and cut his propranolol from 40 down to 20. We have instructed him to follow-up with cardiology. We have instructed him to follow-up with primary care to discuss outpatient appropriate workup of his left shoulder pain which appears to be musculoskeletal in nature. He has a history of previous surgeries to his left shoulder by Dr. Mckeon. Initial ECG Impression Date: May 11, 2019 Initial ECG Impression Time: 11:40 Initial ECG Rate: 64 Initial ECG Rhythm: Normal Sinus Initial ECG Intervals: Normal Initial ECG Impression: Normal, Nonspecific Changes Comment Paced rhythm with right bundle branch block and no clinical relevant ST elevation or depression. Diagnostic Imaging Diagonstic Imaging: Xray Plain Films/CT/US/NM/MRI: chest (1v) Comments [facility]. [place], [place] NAME: PAMELA BLANCO MED REC#: [id number] PT STATUS: REG ER : 1935 PHYSICIAN: BRITTNY VOSS MD ADMIT DATE: 05/11/19/ER Draft Date of Exam:05/11/19 CHEST 1 VIEW, AP/PA ONLY INDICATION: Heart disease. COMPARISON: Comparison made to prior examination 10/29/2018. FINDINGS: The heart size is normal. Mediastinum is unremarkable. There are scattered calcified granulomas. There is no pleural effusion or pneumothorax. Pacemaker overlies the left hemithorax. IMPRESSION: No acute cardiopulmonary abnormality. Dictated on workstation # [id number] Dict: 05/11/19 1232 Trans: 05/11/19 1234 [facility] [id number] Interpreted by: MICHAEL PORTILLO MD Electronically signed by: Reviewed: Reviewed by Me Diagonstic Imaging: Xray Plain Films/CT/US/NM/MRI: other (right shoulder) Comments [facility] [place], [place] NAME: PAMELA BLANCO [facility] REC#: [id number] PT STATUS: REG ER : 1935 PHYSICIAN: BRITTNY VOSS MD ADMIT DATE: 05/11/19/ER Draft Date of Exam:05/11/19 SHOULDER, LEFT, 3 VIEWS INDICATION: Shoulder pain. FINDINGS: There is a chronic appearing left AC joint separation. There is osteophytic change of the glenohumeral joint. There is a bone anchor in the humeral head. Left lung apex is clear. IMPRESSION: Chronic appearing AC joint separation. Degenerative changes of the glenohumeral joint. Dictated on workstation # [id number] Dict: 05/11/19 1232 Trans: 05/11/19 1235 [facility] [id number] Interpreted by: MICHAEL PORTILLO MD Electronically signed by: Reviewed: Reviewed by Me Consults : Consulting Physician: KALEB BEASLEY MD FACP FAC CCDS Consults Notes Dr. Beasley was consulted as the primary machinery dismantler was unavailable. Dr. Beasley agrees that if it's been greater than 6 hours since the chest pain started and negative troponin then it is unlikely musculoskeletal that he could follow up outpatient. Departure Impression Primary Impression: Left anterior shoulder pain Disposition: 01 HOME, SELF-CARE Condition: Stable Departure-Patient Inst. Decision time for Depature: 13:02 Referrals: MAGDI HOPE MD (PCP/Family) Primary Care Physician LEANNA CRAMER MD Patient Instructions: Chest Pain That Is Not Caused by the Heart (DC), Shoulder Pain (DC) Add. Discharge Instructions: Topical creams such as icy hot, Aspercreme, Biofreeze. Tylenol 1000 mg every 8 hours as needed for pain. Follow-up with your primary care doctor to discuss further evaluation and management of left shoulder pain. Follow-up with your machinery dismantler at your convenience. Return to the ER if you begin to have more chest pain, shortness of breath or other worrisome symptoms. Cut your propranolol tablets in half and take 20 mg a day until you see your [facility] doctor or machinery dismantler. Start taking amlodipine 5 mg 1 tablet daily for high blood pressure. 3-5 times a week please record a resting blood pressure when you first awaken and take this information with you to your primary care doctor and machinery dismantler appointment. Scripts Propranolol HCl (Propranolol HCl) 20 Mg Tablet 20 MG PO BID, #30 TAB 0 Refills Prov: BRITTNY VOSS 05/11/19 Amlodipine Besylate (Amlodipine Besylate) 5 Mg Tablet 5 MG PO DAILY for 30 Days, #30 TAB 0 Refills Prov: BRITTNY VOSS 05/11/19 Copy Copies To 1: LEANNA CRAMER MD, TITUS J May 11, 2019 11:50
--- NOTE | 2019-05-11 11:52 | NUR ---
[employer] CARE LINK MONITIOR USED FOR PACEMAKER INTERPRETATION
[2019-05-11 12:03] LABS: BASOPHILS % (AUTO) 0 % (0-10); EOSINOPHILS # (AUTO) 0.1 10^3/uL (0.0-0.3); EOSINOPHILS % (AUTO) 2 % (0-10); HEMATOCRIT 42 % (40-54); LYMPHOCYTES # (AUTO) 1.9 X 10^3 (1.0-4.0); LYMPHOCYTES % (AUTO) 35 % (12-44); MEAN CORPUSCULAR HEMOGLOBIN 32 PG (25-34); MEAN CORPUSCULAR HGB CONC 33 G/DL (32-36); MEAN CORPUSCULAR VOLUME 98 FL (80-99); MEAN PLATELET VOLUME 10.6 FL (7.4-10.4); MONOCYTES # (AUTO) 0.6 X 10^3 (0.0-1.0); MONOCYTES % (AUTO) 11 % (0-12); NEUTROPHILS # (AUTO) 2.9 X 10^3 (1.8-7.8); NEUTROPHILS % (AUTO) 52 % (42-75); PLATELET COUNT 152 10^3/uL (130-400); RED CELL DISTRIBUTION WIDTH 15.8 % (10.0-14.5); WHITE BLOOD COUNT 5.5 10^3/uL (4.3-11.0)
[2019-05-11 12:22] LABS: PROTHROMBIN TIME PATIENT 13.5 SEC (12.2-14.7)
[2019-05-11 12:30] LABS: ALANINE AMINOTRANSFERASE 34 U/L (0-55); ALKALINE PHOSPHATASE 79 U/L (40-136); BILIRUBIN,TOTAL 0.6 MG/DL (0.1-1.0); BUN/CREATININE RATIO 13; CALCIUM 9.3 MG/DL (8.5-10.1); CARBON DIOXIDE 22 MMOL/L (21-32); CHLORIDE 107 MMOL/L (98-107); CREATININE SERUM 1.47 MG/DL (0.60-1.30); GFR ESTIMATED 46; GLUCOSE 98 MG/DL (70-105); MAGNESIUM 1.9 MG/DL (1.6-2.4); POTASSIUM 4.4 MMOL/L (3.6-5.0); SODIUM 138 MMOL/L (135-145); TOTAL PROTEIN 7.2 GM/DL (6.4-8.2)
[2019-05-11] MEDS ORDERED: NS IV 1000 ML 1,000 ML IV SCH (12:30)
--- NOTE | 2019-05-11 12:34 | Diagnostic Imaging Report ---
INDICATION: Heart disease. COMPARISON: Comparison made to prior examination 10/29/2018. FINDINGS: The heart size is normal. Mediastinum is unremarkable. There are scattered calcified granulomas. There is no pleural effusion or pneumothorax. Pacemaker overlies the left hemithorax. IMPRESSION: No acute cardiopulmonary abnormality. Dictated by: Dictated on workstation # [id number]
--- NOTE | 2019-05-11 12:35 | Diagnostic Imaging Report ---
INDICATION: Shoulder pain. FINDINGS: There is a chronic appearing left AC joint separation. There is osteophytic change of the glenohumeral joint. There is a bone anchor in the humeral head. Left lung apex is clear. IMPRESSION: Chronic appearing AC joint separation. Degenerative changes of the glenohumeral joint. Dictated by: Dictated on workstation # [id number]
[2019-05-11] MEDS ORDERED: IOHEXOL 350 MG/ML 100 ML (OMNIPAQUE 350) VIAL IV ONE (12:45)
[2019-05-11] MEDS ORDERED: HOLD METFORMIN - RECEIVED CONTRAST 20 ML VIAL IV SCH (12:45)
[2019-05-11] MEDS ORDERED: NS 100 ML (IVPB) BAG IV ONE (12:45)
[2019-05-11] MEDS ORDERED: CATHETER FLUSH 10 ML SYR IV PRN (12:45)
[2019-05-11] MEDS ORDERED: PROP20TA5 PO (13:05)
[2019-05-11] MEDS ORDERED: AMLO5TAB9 PO (13:05)
[2019-05-11 13:15] VITALS: BP 140/86
--- OUTSIDE RECORDS SUMMARY | 2019-05-20 20:55 | XMS REPORT | Clinical Summary ---
Author Author [facility] Organization [facility] Address Unknown Phone Unavailable Care Team Providers Care Hris Developer Name Role Phone Macie Yu DO Unavailable Source Comments Some departments are not documenting in the electronic medical record. If you d o not see the information that you expected, contact Release of Information in merged with [facility] [employer] Information Management department at [phone] for further assistan ce in locating additional records.[facility] Allergies Comments Active Allergy Reactions Severity Noted Date Tolerates lower doses and tolerates Aleve. Aspirin ITCHING 06/28/2011 Pt cannot recall reaction but states he is allergic. Moxifloxacin UNKNOWN 07/17/2011 After several days of taking it. Azithromycin STOMACH UPSET 07/17/2011 Pt cannot recall reaction but states he is allergic. Clarithromycin UNKNOWN 06/28/2011 Cefuroxime Axetil UNKNOWN 06/28/2011 Pt cannot recall reaction but states he is allergic. Cefuroxime UNKNOWN 06/28/2011 Codeine HALLUCINATION 06/28/2011 S Propoxyphene HALLUCINATION 06/28/2011 N-Acetaminophen S Meperidine HALLUCINATION 06/28/2011 S Erythromycin UNKNOWN 06/28/2011 Metoprolol STOMACH 07/17/2011 UPSET, DIZZINESS Urinary retention and vomiting, tolerates in small amounts, tolerates Fentanyl. Morphine SEE COMMENTS 07/17/2011 Niacin UNKNOWN 06/28/2011 Tolerates Aleve and tolerated Vioxx in the past. Nsaids (Non-Steroidal ITCHING 07/17/2011 Anti-Inflammatory Drug) Clopidogrel NAUSEA AND 07/17/2011 VOMITING, DIZZINESS Tramadol SHORTNESS OF 07/17/2011 BREATH, ANGIOEDEMA Opdizmi-Pkr-Put Reductase MUSCLE PAIN 06/28/2011 Inhibitors Fenofibrate Micronized UNKNOWN 06/28/2011 Ezetimibe ITCHING 07/17/2011 Medications End Date Status Medication Sig Dispensed Refills Start Date Active Aspirin 81 mg Tab Take 1 Tab by 0 mouth daily. Pt states aspirin makes him itch. Active diphenhydrAMINE Take 25 mg by 0 (BENADRYL) 25 mg capsule mouth at bedtime as needed. Pt states he takes 1 tablet every 3 days. Active ACETAMINOPHEN (TYLENOL Take 650 mg 0 ARTHRITIS PO) by mouth three times daily as needed. Active Problems Problem Noted Date Drug reaction 07/05/2011 Overview: All his medication reactions are intole rances or may be delayed hypersensitivity reactions, but none ar e immediate hypersensitivity reactions except for Tramadol and possi eduardo some of the antibiotic allergies. Therefore none of them woul d be amenable to desensitization efforts. Demerol, Darvocet, and Codeine cause andre llucinations. Morphine in large doses cause urinary retention, tolerate s in small amounts and Fentanyl. [place] (Tramadol) causes angioedema and difficulty breathing. Zetia and ASA (NSAIDs except Aleve and Vioxx) cause itching. Azithromycin causes GI upset. Plavix causes nausea and dizziness. Avelox, Cefuroxime, and Biaxin cause re actions that he cannot recall. Statins cause myalgias. Metoprolol causes dizziness and GI upse t after two to three doses. - We [facility] to find out more details a bout his reactions. Itching, dizziness, and GI upset with a nti-hypertensives, plavix, and ASA. - Will try Zyrtec daily to control itch ing. - Will take his BP when he is dizzy aga in to see if this is anaphylactic hypotension causing these symptoms (no documentation of this per the patient) - Could try Prasugrel instead of Plavix if he requires a stent placement in the future as their is no documentation cross-reactivity of Plavix and Prasugrel (unlike Ticlid). - Would recommend avoidance of all trig gering medications of allergies and intolerances, using alternatives whenev er possible. Family History Medical History Relation Name Comments Diabetes Brother Heart Attack Brother High Cholesterol Brother Hypertension Brother Heart Failure Father Relation Name Status Comments Brother Alive Brother Father CHF Mother Pneumonia after bro oneal hip Sister Alive Sister Alive Social History Date Tobacco Use Types Packs/Day Years Used Never Smoker Smokeless Tobacco: Never Used Drinks/Week oz/Week Comments Alcohol Use Not Asked Sex Assigned at Date Recorded Not on file Industry Job Start Date Occupation Not on file Not on file Not on file Travel End Travel History Travel Start No recent travel history available. Last Filed Vital Signs Reading Time Taken Comments Vital Sign 126/74 07/05/2011 11:18 AM CDT Blood Pressure 70 07/05/2011 11:18 AM CDT Pulse 36.1 C (96.9 F) 07/05/2011 11:06 AM CDT Temperature 18 07/05/2011 11:06 AM CDT Respiratory Rate - - Oxygen Saturation - - Inhaled Oxygen Concentration 85.2 kg (187 lb 12.8 oz) 07/05/2011 11:06 AM CDT Weight 170.2 cm (5' 7") 07/05/2011 11:06 AM CDT Height 29.41 07/05/2011 11:06 AM CDT Body Mass Index Plan of Treatment Health Maintenance Due Date Last Done Comments DTAP/TDAP VACCINES (1 - 1945 Tdap) PHYSICAL (COMPREHENSIVE) 1952 EXAM SHINGLES RECOMBINANT 1984 VACCINE (1 of 2) PNEUMONIA (PCV13/PPSV23) 11/19/1999 VACCINES (1 of 2 - PCV13) INFLUENZA VACCINE 10/29/2018 Results Not on filefrom Last 3 Months
--- OUTSIDE RECORDS SUMMARY | 2019-05-20 20:56 | XMS REPORT | Continuity of Care Document ---
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 13.5 s 12.2-14.7 INR in platelet poor plasma or blood by coagulation as say 1.0 0.8-1.4 Activated partial thromboplastin time (a PTT) in platelet poor plasma bycoagulation assay - 06/11/18 09:01 Activated partial thromboplastin time (a PTT) in platelet poor plasma bycoagulation assay 27 s 24-35 Methicillin resistant Staphylococcus aur eus (MRSA) screening culture - 06/11/18 09:01 Methicillin resistant Staphylococcus aureus (MRSA) scr eening culture NEG NRG Automated blood complete blood count (he mogram) panel - 10/29/18 08:10 Blood leukocytes automated count (number/volume) 5.0 10*3/uL 4.3-11.0 Blood erythrocytes automated count (number/volume) 4.19 10*6/uL 4.35-5.85 Venous blood hemoglobin measurement (mass/volume) 13.4 g/dL 13.3-17.7 Blood hematocrit (volume fraction) 41 % 40-54 Automated erythrocyte mean corpuscular volume 97 [ foz_us] 80-99 Automated erythrocyte mean corpuscular h emoglobin (mass per erythrocyte) 32 pg 25-34 Automated erythrocyte mean corpuscular h emoglobin concentration measurement (mass/volume) 33 g/dL 32-36 Automated erythrocyte distribution width ratio 15. 2 % 10.0- 14.5 Automated blood platelet count (count/volume) 164 10*3/uL 130-400 Automated blood platelet mean volume measurement 10.9 [foz_us] 7.4-10.4 PT panel in platelet poor plasma by coag ulation assay - 10/29/18 08:10 Prothrombin time (PT) in platelet poor plasma by coagu lation assay 14.0 s 12.2-14.7 INR in platelet poor plasma or blood by coagulation as say 1.0 0.8-1.4 Activated partial thromboplastin time (a PTT) in platelet poor plasma bycoagulation assay - 10/29/18 08:10 Activated partial thromboplastin time (a PTT) in platelet poor plasma bycoagulation assay 28 s 24-35 Comprehensive metabolic panel - 10/29/18 08:10 Serum or plasma sodium measurement (moles/volume) 140 mmol/L 135-145 Serum or plasma potassium measurement (moles/volume) 4.8 mmol/L 3.6-5.0 Serum or plasma chloride measurement (moles/volume) 109 mmol/L 98-107 Carbon dioxide 20 mmol/L 21-32 Serum or plasma anion gap determination (moles/volume) 11 mmol/L 5-14 Serum or plasma urea nitrogen measurement (mass/volume ) 22 mg/dL 7-18 Serum or plasma creatinine measurement (mass/volume) 1.47 mg/dL 0.60-1.30 Serum or plasma urea nitrogen/creatinine mass ratio 15 NRG Serum or plasma creatinine measurement w ith calculation of estimated glomerular filtration rate 46 NRG Serum or plasma glucose measurement (mass/volume) 106 mg/dL 70-105 Serum or plasma calcium measurement (mass/volume) 9.5 mg/dL 8.5-10.1 Serum or plasma total bilirubin measurement (mass/volu me) 0.9 mg/dL 0.1-1.0 Serum or plasma alkaline phosphatase james surement (enzymatic activity/volume) 56 U/L 40-136 Serum or plasma aspartate aminotransfera se measurement (enzymatic activity/volume) 23 U/L 5-34 Serum or plasma alanine aminotransferase measurement (enzymatic activity/volume) 17 U/L 0-55 Serum or plasma protein measurement (mass/volume) 7.0 g/dL 6.4-8.2 Serum or plasma albumin measurement (mass/volume) 4.1 g/dL 3.2-4.5 CALCIUM CORRECTED 9.4 mg/dL 8.5-10.1 Methicillin resistant Staphylococcus aur eus (MRSA) screening culture - 10/29/18 08:10 Methicillin resistant Staphylococcus aureus (MRSA) scr eening culture NEG NRG Automated blood complete blood count (he mogram) panel - 10/30/18 04:31 Blood leukocytes automated count (number/volume) 5.9 10*3/uL 4.3-11.0 Blood erythrocytes automated count (number/volume) 3.28 10*6/uL 4.35-5.85 Venous blood hemoglobin measurement (mass/volume) 10.6 g/dL 13.3-17.7 Blood hematocrit (volume fraction) 32 % 40-54 Automated erythrocyte mean corpuscular volume 98 [ foz_us] 80-99 Automated erythrocyte mean corpuscular h emoglobin (mass per erythrocyte) 32 pg 25-34 Automated erythrocyte mean corpuscular h emoglobin concentration measurement (mass/volume) 33 g/dL 32-36 Automated erythrocyte distribution width ratio 14. 9 % 10.0- 14.5 Automated blood platelet count (count/volume) 142 10*3/uL 130-400 Automated blood platelet mean volume measurement 11.1 [foz_us] 7.4-10.4 Comprehensive metabolic panel - 10/30/18 04:31 Serum or plasma sodium measurement (moles/volume) 137 mmol/L 135-145 Serum or plasma potassium measurement (moles/volume) 4.6 mmol/L 3.6-5.0 Serum or plasma chloride measurement (moles/volume) 110 mmol/L 98-107 Carbon dioxide 18 mmol/L 21-32 Serum or plasma anion gap determination (moles/volume) 9 mmol/L 5-14 Serum or plasma urea nitrogen measurement (mass/volume ) 22 mg/dL 7-18 Serum or plasma creatinine measurement (mass/volume) 1.28 mg/dL 0.60-1.30 Serum or plasma urea nitrogen/creatinine mass ratio 17 NRG Serum or plasma creatinine measurement w ith calculation of estimated glomerular filtration rate 54 NRG Serum or plasma glucose measurement (mass/volume) 108 mg/dL 70-105 Serum or plasma calcium measurement (mass/volume) 8.5 mg/dL 8.5-10.1 Serum or plasma total bilirubin measurement (mass/volu me) 0.4 mg/dL 0.1-1.0 Serum or plasma alkaline phosphatase james surement (enzymatic activity/volume) 48 U/L 40-136 Serum or plasma aspartate aminotransfera se measurement (enzymatic activity/volume) 15 U/L 5-34 Serum or plasma alanine aminotransferase measurement (enzymatic activity/volume) 10 U/L 0-55 Serum or plasma protein measurement (mass/volume) 5.5 g/dL 6.4-8.2 Serum or plasma albumin measurement (mass/volume) 3.2 g/dL 3.2-4.5 CALCIUM CORRECTED 9.1 mg/dL 8.5-10.1 Complete blood count (CBC) with automate d white blood cell (WBC) differential - 05/11/19 11:50 Blood leukocytes automated count (number/volume) 5.5 10*3/uL 4.3-11.0 Blood erythrocytes automated count (number/volume) 4.32 10*6/uL 4.35-5.85 Venous blood hemoglobin measurement (mass/volume) 14.0 g/dL 13.3-17.7 Blood hematocrit (volume fraction) 42 % 40-54 Automated erythrocyte mean corpuscular volume 98 [ foz_us] 80-99 Automated erythrocyte mean corpuscular h emoglobin (mass per erythrocyte) 32 pg 25-34 Automated erythrocyte mean corpuscular h emoglobin concentration measurement (mass/volume) 33 g/dL 32-36 Automated erythrocyte distribution width ratio 15. 8 % 10.0- 14.5 Automated blood platelet count (count/volume) 152 10*3/uL 130-400 Automated blood platelet mean volume measurement 10.6 [foz_us] 7.4-10.4 Automated blood neutrophils/100 leukocytes 52 % 42-75 Automated blood lymphocytes/100 leukocytes 35 % 12-44 Blood monocytes/100 leukocytes 11 % 0-12 Automated blood eosinophils/100 leukocytes 2 % 0-10 Automated blood basophils/100 leukocytes 0 % 0-10 Blood neutrophils automated count (number/volume) 2.9 10*3 1.8-7.8 Blood lymphocytes automated count (number/volume) 1.9 10*3 1.0-4.0 Blood monocytes automated count (number/volume) 0. 6 10*3 0.0-1.0 Automated eosinophil count 0.1 10*3/uL 0 .0-0.3 Automated blood basophil count (count/volume) 0.0 10*3/uL 0.0-0.1 PT panel in platelet poor plasma by coag ulation assay - 05/11/19 11:50 Prothrombin time (PT) in platelet poor plasma by coagu lation assay 13.5 s 12.2-14.7 INR in platelet poor plasma or blood by coagulation as say 1.0 0.8-1.4 Activated partial thromboplastin time (a PTT) in platelet poor plasma bycoagulation assay - 05/11/19 11:50 Activated partial thromboplastin time (a PTT) in platelet poor plasma bycoagulation assay 27 s 24-35 Comprehensive metabolic panel - 05/11/19 11:50 Serum or plasma sodium measurement (moles/volume) 138 mmol/L 135-145 Serum or plasma potassium measurement (moles/volume) 4.4 mmol/L 3.6-5.0 Serum or plasma chloride measurement (moles/volume) 107 mmol/L 98-107 Carbon dioxide 22 mmol/L 21-32 Serum or plasma anion gap determination (moles/volume) 9 mmol/L 5-14 Serum or plasma urea nitrogen measurement (mass/volume ) 19 mg/dL 7-18 Serum or plasma creatinine measurement (mass/volume) 1.47 mg/dL 0.60-1.30 Serum or plasma urea nitrogen/creatinine mass ratio 13 NRG Serum or plasma creatinine measurement w ith calculation of estimated glomerular filtration rate 46 NRG Serum or plasma glucose measurement (mass/volume) 98 mg/dL 70-105 Serum or plasma calcium measurement (mass/volume) 9.3 mg/dL 8.5-10.1 Serum or plasma total bilirubin measurement (mass/volu me) 0.6 mg/dL 0.1-1.0 Serum or plasma alkaline phosphatase james surement (enzymatic activity/volume) 79 U/L 40-136 Serum or plasma aspartate aminotransfera se measurement (enzymatic activity/volume) 24 U/L 5-34 Serum or plasma alanine aminotransferase measurement (enzymatic activity/volume) 34 U/L 0-55 Serum or plasma protein measurement (mass/volume) 7.2 g/dL 6.4-8.2 Serum or plasma albumin measurement (mass/volume) 4.0 g/dL 3.2-4.5 CALCIUM CORRECTED 9.3 mg/dL 8.5-10.1 Magnesium - 05/11/19 11:50 Magnesium 1.9 mg/dL 1.6-2.4 Serum or plasma lithium measurement (mol es/volume) - 05/11/19 11:50 BNP PT 66.6 pg/mL <100.0 Fibrin D-dimer FEU measurement in platel et poor plasma (mass/volume) - 05/11/19 11:50 Fibrin D-dimer FEU measurement in platelet poor plasma (mass/volume) 1.35 ug/mL 0.00-0.49 Serum or plasma troponin i.cardiac measu rement (mass/volume) - 05/11/19 11:50 Serum or plasma troponin i.cardiac measurement (mass/v olume) < ng/mL <0.028 Myoglobin, serum - 05/11/19 11:50 Myoglobin, serum 64.3 ng/mL 10.0-92.0 Encounters ACCT No. Visit Date/Time Discharge Status Pt. Type Provider Facility Loc./Unit Complaint [id number] 05/11/2019 11:35:00 020 13:15:00 DIS Emergency BRITTNY VOSS MD [facility] ER L ARM PAIN;HIGH BP [id number] 10/29/2018 07:44:00 019 09:54:00 DIS Outpatient Kishan LOERA MD [facility] CATH CARDIOMYOPATHY [id number] 10/19/2018 09:51:00 019 23:59:59 CLS Outpatient MAGDI HOPE MD [facility] RAD DYSPHAGIA [id number] 08/10/2018 12:04:00 019 23:59:59 CLS Preadmit Kishan LOERA MD [facility] CARD CHF [id number] 06/11/2018 08:39:00 019 15:20:00 DIS Outpatient Kishan LOERA MD [facility] CATH NEW ONSET CARDIOMYOPATH Y [id number] 05/20/2018 10:17:00 019 23:59:59 CLS Outpatient Kishan LOERA MD [facility] CARD CAD,PACEMAKER [id number] 05/14/2018 06:49:00 23:59:59 CLS Outpatient Kishan LOERA MD [facility] CARD HTN,CAD [id number] 04/22/2016 11:04:00 017 23:59:59 CLS Outpatient JULISSA CADENA APRN [facility] RAD PNEUMONIA [id number] 06/08/2015 09:22:00 016 12:20:00 DIS Emergency PROMISE DARNELL [facility] ER CHEST PAIN [id number] 12/22/2014 06:36:00 015 09:38:00 DIS Outpatient CLINTON JORDAN MD [facility] GERD [id number] 12/15/2014 05:47:00 015 23:59:59 CLS Outpatient CLINTON JORDAN MD [facility] PREOP GERD [id number] 10/20/2014 07:36:00 015 09:50:00 DIS Outpatient CLINTON JORDAN MD [facility] GERD [id number] 10/19/2014 06:07:00 015 23:59:59 CLS Outpatient CLINTON JORDAN MD [facility] PREOP GERD [id number] 10/18/2014 09:25:00 015 23:59:59 CLS Outpatient CLINTON JORDAN MD [facility] CARD ABD PAIN [id number] 10/11/2014 06:47:00 015 23:59:59 CLS Outpatient CLINTON JORDAN MD [facility] RAD NAUSEA [id number] 02/15/2014 10:57:00 014 19:00:00 DIS Outpatient SG MARTINEZ FACC, KALEB STAFFORD CC DS [facility] CATH ABNORMAL ST RESS, CAD,HLP [id number] 02/03/2014 07:06:00 014 23:59:59 CLS Outpatient SG MARTINEZ FACC, KALEB STAFFORD CC DS [facility] CARD CAD,DYSPNEA,HTN,HLP,PACEMAKER [id number] 10/11/2014 06:45:00 Document Registration [id number] 10/11/2014 06:45:00 Document Registration [id number] 10/11/2014 06:45:00 Document Registration [id number] 10/11/2014 06:45:00 Document Registration [id number] 10/11/2014 06:45:00 Document Registration [id number] 06/04/2014 14:50:00 Document Registration [id number] 02/19/2012 00:00:00 Document Registration [id number] 01/21/2012 12:38:00 Document Registration [id number] 01/14/2012 06:24:00 Document Registration [id number] 12/04/2011 09:37:00 Document Registration [id number] 10/16/2011 17:44:00 Document Registration [id number] 10/15/2011 11:48:00 Document Registration [id number] 10/14/2011 14:29:00 Document Registration [id number] 03/19/2011 05:29:00 Document Registration [id number] 03/13/2011 14:19:00 Document Registration [id number] 02/22/2011 02:03:00 Document Registration [id number] 07/23/2010 14:21:00 Document Registration [id number] 05/22/2010 09:14:00 Document Registration [id number] 05/16/2010 14:48:00 Document Registration [id number] 05/07/2010 09:21:00 Document Registration [id number] 02/22/2009 00:00:00 Document Registration
== END 2019-05-11 13:15 | disposition home or self-care (01) ==
LOC: EDUNIT# 11:33 → ER 11:35
DX: M25.512 Pain in left shoulder (principal); I10 Essential (primary) hypertension; E78.00 Pure hypercholesterolemia, unspecified; I25.10 Atherosclerotic heart disease of native coronary artery without angina pectoris; G20 Parkinson's disease; Z85.828 Personal history of other malignant neoplasm of skin; Z95.0 Presence of cardiac pacemaker; Z79.82 Long term (current) use of aspirin; Z88.6 Allergy status to analgesic agent; Z88.1 Allergy status to other antibiotic agents; Z88.5 Allergy status to narcotic agent; Z77.22 Contact with and (suspected) exposure to environmental tobacco smoke (acute) (chronic); Z82.49 Family history of ischemic heart disease and other diseases of the circulatory system
CPT/HCPCS: 36415; 71045; 73030; 80053; 83735; 83874; 83880; 84484; 85025; 85379; 85610; 85730; 93005; 93041; 96360

== ENCOUNTER → 2019-08-10 | Outpatient (CLI) | payer MEDICARE ==
[~2019-08-10] MED LIST changes: +AMLO5TAB9 PO; +PROP20TA5 PO
== END ==
LOC: CARD 09:21
PROVIDERS: ATTEND Internal Medicine Interventional Cardiology
DX: I25.10 Atherosclerotic heart disease of native coronary artery without angina pectoris (principal); I77.9 Disorder of arteries and arterioles, unspecified; I44.2 Atrioventricular block, complete; E78.5 Hyperlipidemia, unspecified; I48.0 Paroxysmal atrial fibrillation; I49.5 Sick sinus syndrome
CPT/HCPCS: 93306

== ENCOUNTER 2019-11-12 05:50 | Outpatient (CLI) | payer MEDICARE ==
[~2019-11-12] VITALS: Ht 167.7 cm; Wt 78.2 kg
[2019-11-12] MEDS ORDERED: ASPI-999 PO (12:29)
[2019-11-12] MEDS ORDERED: TICA60TA PO (12:29)
[2019-11-12] MEDS ORDERED: AMLO5TAB9 PO (12:29)
[2019-11-12] MEDS ORDERED: ALLO300T2 PO (12:29)
[2019-11-12] MEDS ORDERED: ERGO50006 PO (12:33)
== END 2019-11-12 12:36 | disposition home or self-care (01) ==
LOC: PREOP 05:50
PROVIDERS: ATTEND Specialist
DX: Z01.818 Encounter for other preprocedural examination (principal)

== ENCOUNTER 2019-11-19 06:04 | Day surgery (SDC) | payer MEDICARE, OTHER ==
[~2019-11-19] VITALS: Ht 167.7 cm; Wt 80.4 kg
[~2019-11-19 06:04] MED LIST changes: +ALLO300T2 PO; +ASPI-999 PO; +ERGO50006 PO; +TICA60TA PO
[2019-11-19 06:15] VITALS: BP 152/88
[2019-11-19] MEDS ORDERED: POVIDONE (BETADINE) OPHTH SOLN 5% 30 ML OP ONE (06:15)
[2019-11-19] MEDS ORDERED: MOXIFLOXACIN OPHTH SOLN 5 MG/ML 0.3 ML SYRINGE OP ONE (06:15)
[2019-11-19] MEDS ORDERED: LIDOCAINE PF 1% 2 ML VIAL IR PRN (06:15)
[2019-11-19] MEDS ORDERED: TIMOLOL MALEATE 0.5% 5 ML (TIMOPTIC) BTL OU PRN (06:15)
[2019-11-19] MEDS: TETRACAINE 0.5% OPHTH SOLN 4 ML BTL (SINGLE DOSE ONLY) OU PRN ×4 (06:26→06:42)
[2019-11-19] MEDS: CYCLOPENTOLATE 1% (CYCLOGYL) 2 ML DROPS OP SCH ×3 (06:32→06:42)
[2019-11-19] MEDS: PHENYLEPHRINE 10% OPHTH (NEO-SYN) 5 ML BTL OU SCH ×3 (06:32→06:42)
[2019-11-19] MEDS ORDERED: MIDAZOLAM 2 MG/2 ML (VERSED) VIAL ONE (06:55)
--- NOTE | 2019-11-19 07:33 | Ophthalmologist Pre-Op Note ---
Pre-Operative Progress Note H&P Reviewed The H&P was reviewed, patient examined and no changes noted. Date H&P Reviewed: Nov 19, 2019 Time H&P Reviewed: 07:33 Pre-Op Dx Cataract, Right Eye SHANAE ENNIS MD Nov 19, 2019 07:33
--- NOTE | 2019-11-19 07:58 | Ophthalmology Operative Report ---
Cataract removal/placement IOL PREOPERATIVE DIAGNOSIS: Cataract Right Eye POSTOPERATIVE DIAGNOSIS: Cataract Right Eye PROCEDURE: Cataract removal and placement of posterior chamber implant, right eye SURGEON: Orlando Ennis ANESTHESIA: Topical with sedation COMPLICATIONS: None ESTIMATED BLOOD LOSS: Minimal DESCRIPTION OF PROCEDURE: After proper informed consent was obtained, the patient, a 84 male, was taken to the Operating Room and the right eye was anesthetized with tetracaine. The right eye was then prepped and draped in the usual manner. A wire lid speculum was placed. A paracentesis was made at the left hand position. Preservative free lidocaine was injected into the anterior chamber followed by viscoelastic. A clear corneal incision was made in the temporal position. A capsulorrhexis was preformed and the central nuclear and cortical material were removed. The posterior capsule was polished and Rajeev 19.5 AU00T0 IOL was placed into the capsular bag. The residual viscoelastic was aspirated and balanced saline solution was injected into the anterior chamber. Moxifloxacin was injected into the anterior chamber. The wound was checked and found to be water tight. The patient tolerated the procedure well without complications. ORLANDO ENNIS MD Nov 19, 2019 07:58
[2019-11-19] MEDS ORDERED: acetaZOLAMIDE ER 500 MG CAP (DIAMOX SEQUELS) PO ONE (08:00)
[2019-11-19 08:06] VITALS: BP 112/61
--- NOTE | 2019-11-19 10:54 | Anesthesia-General Post-Op ---
MAC Patient Condition Mental Status/LOC: Same as Preop Cardiovascular: Satisfactory Nausea/Vomiting: Absent Respiratory: Satisfactory Pain: Controlled Complications: Absent Post Op Complications Complications None Follow Up Care/Instructions Patient Instructions None needed. Anesthesiology Discharge Order Discharge Order Patient is doing well, no complaints, stable vital signs, no apparent adverse anesthesia problems. No complications reported per nursing. MONICA MENDOSA CRNA Nov 19, 2019 10:54
== END 2019-11-19 08:06 | disposition home or self-care (01) ==
LOC: SDC 06:04
PROVIDERS: ATTEND Specialist
DX: H25.11 Age-related nuclear cataract, right eye (principal); I10 Essential (primary) hypertension; E78.00 Pure hypercholesterolemia, unspecified; E78.5 Hyperlipidemia, unspecified; M06.9 Rheumatoid arthritis, unspecified; Z88.5 Allergy status to narcotic agent; Z88.1 Allergy status to other antibiotic agents; Z88.8 Allergy status to other drugs, medicaments and biological substances; Z85.828 Personal history of other malignant neoplasm of skin; Z79.82 Long term (current) use of aspirin; Z79.899 Other long term (current) drug therapy
CPT/HCPCS: 66984; V2632

== ENCOUNTER 2019-11-24 05:45 | Outpatient (CLI) | payer MEDICARE, OTHER ==
[~2019-11-24] VITALS: Ht 167 cm; Wt 77.2 kg
== END 2019-11-24 15:34 | disposition home or self-care (01) ==
LOC: PREOP 05:45
PROVIDERS: ATTEND Specialist
DX: Z01.818 Encounter for other preprocedural examination (principal)

== ENCOUNTER 2019-11-26 06:00 | Day surgery (SDC) | payer MEDICARE, OTHER ==
[~2019-11-26] VITALS: Ht 167 cm; Wt 77.2 kg
[2019-11-26 06:10] VITALS: BP 138/77
[2019-11-26] MEDS ORDERED: POVIDONE (BETADINE) OPHTH SOLN 5% 30 ML OP ONE (06:15)
[2019-11-26] MEDS ORDERED: TIMOLOL MALEATE 0.5% 5 ML (TIMOPTIC) BTL OU PRN (06:15)
[2019-11-26] MEDS ORDERED: MOXIFLOXACIN OPHTH SOLN 5 MG/ML 0.3 ML SYRINGE OP ONE (06:15)
[2019-11-26] MEDS ORDERED: LIDOCAINE PF 1% 2 ML VIAL IR PRN (06:15)
[2019-11-26] MEDS: TETRACAINE 0.5% OPHTH SOLN 4 ML BTL (SINGLE DOSE ONLY) OU PRN ×4 (06:23→06:39)
[2019-11-26] MEDS: CYCLOPENTOLATE 1% (CYCLOGYL) 2 ML DROPS OP SCH ×3 (06:29→06:39)
[2019-11-26] MEDS: PHENYLEPHRINE 10% OPHTH (NEO-SYN) 5 ML BTL OU SCH ×3 (06:29→06:39)
[2019-11-26] MEDS ORDERED: VASOPRESSIN INJECTION 20 UNIT/ML VIAL ONE (06:40)
[2019-11-26] MEDS ORDERED: MIDAZOLAM 2 MG/2 ML (VERSED) VIAL ONE (06:50)
--- NOTE | 2019-11-26 06:54 | Ophthalmologist Pre-Op Note ---
Pre-Operative Progress Note H&P Reviewed The H&P was reviewed, patient examined and no changes noted. Date H&P Reviewed: Nov 26, 2019 Time H&P Reviewed: 06:54 Pre-Op Dx Cataract, Left Eye SHANAE ENNIS MD Nov 26, 2019 06:54
--- NOTE | 2019-11-26 07:21 | Ophthalmology Operative Report ---
Cataract removal/placement IOL PREOPERATIVE DIAGNOSIS: Cataract Left Eye POSTOPERATIVE DIAGNOSIS: Cataract Left Eye PROCEDURE: Cataract removal and placement of posterior chamber implant, left eye SURGEON: Orlando Ennis ANESTHESIA: Topical with sedation COMPLICATIONS: None ESTIMATED BLOOD LOSS: Minimal DESCRIPTION OF PROCEDURE: After proper informed consent was obtained, the patient, a 84 male, was taken to the Operating Room and the left eye was anesthetized with tetracaine. The left eye was then prepped and draped in the usual manner. A wire lid speculum was placed. A paracentesis was made at the left hand position. Preservative free lidocaine was injected into the anterior chamber followed by viscoelastic. A clear corneal incision was made in the temporal position. A capsulorrhexis was preformed and the central nuclear and cortical material were removed. The posterior capsule was polished and an Rajeev 20.5 AU00T0 was placed into the capsular bag. The residual viscoelastic was aspirated and balanced saline solution was injected into the anterior chamber. Moxifloxacin was injected into the anterior chamber. The wound was checked and found to be water tight. The patient tolerated the procedure well without complications. ORLANDO ENNIS MD Nov 26, 2019 07:21
[2019-11-26 07:25] VITALS: BP 127/66
[2019-11-26] MEDS ORDERED: acetaZOLAMIDE ER 500 MG CAP (DIAMOX SEQUELS) PO ONE (07:45)
--- NOTE | 2019-11-26 14:16 | Anesthesia-General Post-Op ---
MAC Patient Condition Mental Status/LOC: Same as Preop Cardiovascular: Satisfactory Nausea/Vomiting: Absent Respiratory: Satisfactory Pain: Controlled Complications: Absent Post Op Complications Complications None Follow Up Care/Instructions Patient Instructions None needed. Anesthesiology Discharge Order Discharge Order Patient was seen this morning after the procedure and he was doing well, no complaints, stable vital signs, no apparent adverse anesthesia problems. PORTIA MARQUEZ DO Nov 26, 2019 14:16
== END 2019-11-26 07:25 | disposition home or self-care (01) ==
LOC: SDC 06:00
PROVIDERS: ATTEND Specialist
DX: H25.12 Age-related nuclear cataract, left eye (principal); I10 Essential (primary) hypertension; M06.9 Rheumatoid arthritis, unspecified; E78.00 Pure hypercholesterolemia, unspecified; Z79.899 Other long term (current) drug therapy; Z88.1 Allergy status to other antibiotic agents; Z88.8 Allergy status to other drugs, medicaments and biological substances
CPT/HCPCS: 66984; V2632

== ENCOUNTER → 2019-12-08 | Outpatient (CLI) | payer MEDICARE, OTHER | LOC: CARD 08:15 | PROVIDERS: ATTEND Internal Medicine Interventional Cardiology | DX: I34.0 Nonrheumatic mitral (valve) insufficiency (principal); I25.10 Atherosclerotic heart disease of native coronary artery without angina pectoris; I48.0 Paroxysmal atrial fibrillation | CPT/HCPCS: 93306 ==

== ENCOUNTER 2020-07-31 05:35 | Outpatient (CLI) | payer MEDICARE, OTHER ==
[~2020-07-31] VITALS: Ht 165.1 cm; Wt 81.4 kg
[~2020-07-31 05:35] MED LIST changes: +AMLO-250 PO; -AMLO5TAB9 PO; +ENAL10TA16 PO
[2020-07-31] MEDS ORDERED: CARB1TAB30 PO (10:56)
[2020-07-31] MEDS ORDERED: SELE5TAB4 PO (10:56)
[2020-07-31] MEDS ORDERED: OMEP40CA27 PO (10:56)
[2020-07-31] MEDS ORDERED: [UNRECOGNIZED DRUG - CODE] PO (10:56)
[2020-07-31] MEDS ORDERED: RPN.25T PO (10:56)
== END 2020-07-31 11:00 | disposition home or self-care (01) ==
LOC: PREOP 05:35
PROVIDERS: ATTEND Specialist
DX: Z01.818 Encounter for other preprocedural examination (principal)

== ENCOUNTER 2020-08-04 07:03 | Day surgery (SDC) | payer MEDICARE, OTHER ==
[~2020-08-04] VITALS: Ht 165 cm; Wt 81.0 kg
[~2020-08-04 07:03] MED LIST changes: +CARB1TAB30 PO; +RPN.25T PO; +SELE5TAB4 PO; +[UNRECOGNIZED DRUG - CODE] PO
[2020-08-04] MEDS ORDERED: PHENYLEPHRINE 10% OPHTH (NEO-SYN) 5 ML BTL OU PRN (07:15)
[2020-08-04] MEDS ORDERED: TETRACAINE 0.5% OPHTH SOLN 4 ML BTL (SINGLE DOSE ONLY) OU PRN (07:15)
[2020-08-04] MEDS ORDERED: TROPICAMIDE 1% OPH SOLN (MYDRIACYL) 15 ML BTL OU PRN (07:15)
[2020-08-04 07:27] VITALS: BP 146/73
--- NOTE | 2020-08-04 08:03 | Ophthalmologist Pre-Op Note ---
Pre-Operative Progress Note H&P Reviewed The H&P was reviewed, patient examined and no changes noted. Date H&P Reviewed: August 04, 2020 Time H&P Reviewed: 07:33 Pre-Op Dx Secondary Cataract, Right Eye SHANAE ENNIS MD August 04, 2020 08:03
--- NOTE | 2020-08-04 08:04 | Ophthalmology Operative Report ---
YAG Capsulotomy PREOPERATIVE DIAGNOSIS: Secondary Cataract Left Eye POSTOPERATIVE DIAGNOSIS: Secondary Cataract Left Eye PROCEDURE: YAG Capsulotomy, left eye SURGEON: Orlando Ennis ANESTHESIA: Topical anesthesia COMPLICATIONS: None ESTIMATED BLOOD LOSS: Minimal DESCRIPTION OF PROCEDURE: After proper informed consent was obtained, the patient's, a 84 male left eye received one drop of Tropicamide and one drop of Tetracaine. The patient was then placed at the YAG laser and using a power of [ 3.9] millijoules and [ 29] bursts were used to fashion a central capsulotomy. The patient tolerated the procedure well without complications. ORLANDO ENNIS MD August 04, 2020 08:03
== END 2020-08-04 07:40 ==
LOC: SDC 07:03
PROVIDERS: ATTEND Specialist
DX: H26.492 Other secondary cataract, left eye (principal); E78.00 Pure hypercholesterolemia, unspecified; Z88.1 Allergy status to other antibiotic agents; Z88.5 Allergy status to narcotic agent; Z88.8 Allergy status to other drugs, medicaments and biological substances

== ENCOUNTER → 2020-08-11 | Outpatient (CLI) | payer MEDICARE, OTHER ==
--- NOTE | 2020-08-11 17:32 | Diagnostic Imaging Report ---
EXAMINATION: Cervical spine 416 hours. INDICATION: Neck pain. AP, lateral and odontoid views were obtained. There are no prior studies available for comparison. FINDINGS: The lateral view shows the vertebral body heights and alignment to be generally within normal limits. There is narrowing of the disc spaces at every level, particularly at C5-C6 and C6-C7. There are also prominent bridging osteophytes along the anterior aspects of C3-C4, C4-C5 and C5-C6. There is no fracture or acute bony abnormality evident. There is no sign of retropharyngeal edema. The lung apices were visualized are clear. There is a left-sided pacemaker in place. IMPRESSION: 1. There is no evidence for an acute bony abnormality. 2. 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 3. If there is clinical concern regarding spinal stenosis or nerve root encroachment, then CT would be recommended for further evaluation. Dictated by: Dictated on workstation # [id number]
== END ==
LOC: RAD 15:57
PROVIDERS: ATTEND Nurse Practitioner Family
DX: M50.323 Other cervical disc degeneration at C6-C7 level (principal); M50.322 Other cervical disc degeneration at C5-C6 level; M25.78 Osteophyte, vertebrae; R20.2 Paresthesia of skin
CPT/HCPCS: 72040

== ENCOUNTER 2020-08-16 09:57 | Outpatient (RCR) | payer MEDICARE, OTHER ==
[2020-08-31] MEDS ORDERED: AMLO-251 PO (16:03)
[2020-08-31] MEDS ORDERED: ASPI-999 PO (16:03)
[2020-08-31] MEDS ORDERED: PROP20TA5 PO (16:03)
[2020-09-05] MEDS ORDERED: AMLO-250 PO (13:10)
[2020-09-05] MEDS ORDERED: TRAM50TA3 PO (15:42)
== END 2020-09-12 16:02 | disposition home or self-care (01) ==
PROVIDERS: ATTEND Nurse Practitioner Family
DX: M54.2 Cervicalgia (principal)

== ENCOUNTER 2020-08-31 05:43 | Outpatient (CLI) | payer MEDICARE, OTHER ==
[~2020-08-31] VITALS: Ht 165 cm; Wt 81.0 kg
[2020-08-31] MEDS ORDERED: PROP20TA5 PO (16:03)
[2020-08-31] MEDS ORDERED: ASPI-999 PO (16:03)
[2020-08-31] MEDS ORDERED: AMLO-251 PO (16:03)
== END 2020-08-31 16:08 | disposition home or self-care (01) ==
LOC: PREOP 05:43
PROVIDERS: ATTEND Surgery
DX: Z01.818 Encounter for other preprocedural examination (principal)

== ENCOUNTER 2020-09-05 10:50 | Day surgery (SDC) | payer MEDICARE, OTHER ==
--- NOTE | 2020-08-31 07:43 | HISTORY AND PHYSICAL ---
DATE OF SERVICE: ATTENDING PRIMARY CARE PHYSICIAN: Vy Arteaga MD. HISTORY OF PRESENT ILLNESS: The patient is an 84-year-old male known to us. We had seen him before for gastroesophageal reflux disease as well as colitis. He underwent an EGD, which did show a reflux esophagitis as well as a mild gastritis; however, no other abnormalities. We had also seen him for an umbilical hernia, which was reducible and he opted for medical management. On today's office visit, he has a lesion of the right third digit along the medial aspect. Using a table saw, he transected the distal tips of digits 3 through 5. Along the medial aspect of the third digit, he has a hypertrophic tissue that is deep and likely cartilaginous versus calcified bone. He states that this has gotten larger over time and has impeded his ability to write. He states that the accident was approximately in 2013 and the lesion has grown larger in size over time. He would like to have this distal end of the finger repaired back to normal anatomy. PAST MEDICAL HISTORY: Hypertension, coronary artery disease, gastroesophageal reflux disease, cardiac arrhythmia, history of diverticulosis, history of ischemic colitis. PAST SURGICAL HISTORY: Cardiac catheterization x4 stents, last one done in 2015. Pacemaker implantation x3 with the last one done 10/2018. Transurethral resection of the prostate in 1990, bilateral rotator cuff repair and bilateral cataracts 2020. ALLERGIES: MORPHINE, CODEINE, DARVOCET, ERYTHROMYCIN, CEPHALEXIN, CLARITHROMYCIN, AZITHROMYCIN, MEPERIDINE, AMOXICILLIN, CEFTIN, DEMEROL, STATIN, TRICOR, BIAXIN, SELEGILINE, CARBIDOPA, REQUIP, PRAMIPEXOLE, RYTARY. MEDICATIONS: Brilinta, enalapril 10 mg daily, amlodipine 10 mg daily, aspirin 81 mg daily, allopurinol, Prilosec 40 mg daily, subcutaneous shot 2 times a month, propranolol 20 mg daily. SOCIAL HISTORY: Negative smoke, negative alcohol. FAMILY HISTORY: Sister, stroke in her 60s. Brother, myocardial infarction in his 70s. VITAL SIGNS: Stable. REVIEW OF SYSTEMS: Well-nourished male in no acute distress. He is not experiencing any shortness of breath or difficulty breathing. No chest pain, palpitations, diaphoresis. No nausea or vomiting, no diarrhea or constipation. No fever or chills, no recent inadvertent weight loss. All other review of systems negative. PHYSICAL EXAMINATION: CHEST: Clear. Good breath sounds bilaterally. HEART: Regular, no murmurs. EXTREMITIES: No lower extremity edema, negative Homans sign. HEENT: No scleral icterus. NECK: No cervical lymphadenopathy. ABDOMEN: Soft, nontender, nondistended. SKIN: Along the medial aspect of the right third digit, is a partial amputation of the distal portion of the phalanx; however, along the medial aspect of the digit, is a hard nodule approximately 1 x 1 cm in size, which he states has grown larger in size over time and does have impeded his ability to write. This appears to be cartilaginous versus calcified bone. ASSESSMENT AND PLAN: An 84-year-old male with bony lesion of the medial aspect of the third right digit. He is right hand dominant and this has impeded his ability to write and he would like to have this revised to normal anatomy. We will proceed with exploration as well as either cartilage or bone excision and then reconstruction to close to normal anatomy as possible. Job ID: [id number] DocumentID: [id number] Dictated Date: 08/29/2020 17:07:48 Punch Card Operator Date: 08/29/2020 17:31:50 Dictated By: TARUN GUPTA MD [facility]
[~2020-09-05] VITALS: Ht 165 cm; Wt 81.0 kg
[2020-09-05] VITALS (9 sets, daily range): BP systolic 126–161; BP diastolic 58–99
[~2020-09-05 10:50] MED LIST changes: +AMLO-251 PO; +ERGO1250 PO; -ERGO50006 PO; -OMEP40CA27 PO; +OMEP40CA6 PO
[2020-09-05] MEDS ORDERED: LIDOCAINE 1% INJ 20 ML 20 ML VIAL ONE (12:23)
[2020-09-05] MEDS ORDERED: LIDOCAINE/EPI 1%-1:100,000 (XYLOCAINE) 20ML ONE (12:23)
[2020-09-05] MEDS ORDERED: LACTATED RINGERS 1,000 ML IV PRN (12:30)
--- NOTE | 2020-09-05 12:31 | Progress Note-Pre Operative ---
Pre-Operative Progress Note H&P Reviewed The H&P was reviewed, patient examined and no changes noted. Date Seen by Provider: Sep 05, 2020 Time Seen by Provider: 12:00 Date H&P Reviewed: Sep 05, 2020 Time H&P Reviewed: 12:00 Pre-Operative Diagnosis: sx right 2nd digit lesion TARUN GUPTA MD Sep 05, 2020 12:31
[2020-09-05] MEDS ORDERED: fentaNYL INJ 100 MCG/2 ML AMP IVP PRN (12:45)
[2020-09-05] MEDS ORDERED: VANCOMYCIN INJECTION 1,000 MG in NS (IVPB) 250 ML IV NR (12:45)
[2020-09-05] MEDS ORDERED: ONDANSETRON 4 MG/2 ML (SDV) Z0FRAN IVP PRN ×2 (12:45→14:45)
[2020-09-05] MEDS ORDERED: AMLO-250 PO (13:10)
[2020-09-05] MEDS ORDERED: SEVOFLURANE (ULTANE) 15 ML INHAL SOLN ONE ×3 (13:18→14:18)
[2020-09-05] MEDS ORDERED: ONDANSETRON 4 MG/2 ML (SDV) Z0FRAN ONE (13:18)
[2020-09-05] MEDS ORDERED: proPOfol 200 MG/20 ML (DIPRIVAN) VIAL IV ONE (13:18)
[2020-09-05] MEDS ORDERED: LIDOCAINE PF 2% 5 ML (XYLOCAINE) VIAL ONE (13:18)
[2020-09-05] MEDS ORDERED: fentaNYL INJ 100 MCG/2 ML AMP ONE (13:18)
[2020-09-05] MEDS ORDERED: PHENYLEPHRINE 100 MCG/ML 10 ML (ANESTHESIA) SYR ONE (14:18)
[2020-09-05] MEDS ORDERED: TRAM50TA3 PO (15:42)
--- NOTE | 2020-09-05 15:42 | Discharge Inst-Surgical ---
D/C Lap Instructions-ALONSO New, Converted, or Re-Newed RX: RX on Chart Follow Up Appt in 2 weeks Activity as tolerated Regular Diet Symptoms to Report: Fever over 101 degree F, Nausea/Vomiting Infection Signs and Symptoms to report: Increased redness, Foul odor of wound, Increased drainage Bathing instructions: May shower Operative Area Clean/Dry; Keep incision clean/dry If any problems/questions: Contact your physician or go to Emergency Room TARUN GUPTA MD Sep 05, 2020 15:42
--- NOTE | 2020-09-05 15:50 | Progress Note-Post Operative ---
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 Anesthesia Type general LMA, digital nerve block, local Estimated Blood Loss Estimated blood loss (mL): minimal Specimens/Packing Specimens Removed calcified lesion TARUN GUPTA MD Sep 05, 2020 15:50
--- NOTE | 2020-09-05 16:37 | Anesthesia-General Post-Op ---
General Patient Condition Mental Status/LOC: Same as Preop Cardiovascular: Satisfactory Nausea/Vomiting: Absent Respiratory: Satisfactory Pain: Controlled Complications: Absent Post Op Complications Complications None Follow Up Care/Instructions Patient Instructions None needed. Anesthesia/Patient Condition Patient Condition Patient is doing well, no complaints, stable vital signs, no apparent adverse anesthesia problems. No complications reported per nursing. [place] [facility] [place] Yes MONICA MENDOSA CRNA Sep 05, 2020 16:37
--- NOTE | 2020-09-05 17:20 | OPERATIVE REPORT ---
DATE OF SERVICE: 09/05/2020 ATTENDING PRIMARY CARE PHYSICIAN: Vy Arteaga MD. PREOPERATIVE DIAGNOSIS: Symptomatic calcified right third digit lesion. POSTOPERATIVE DIAGNOSIS: Symptomatic calcified right third digit lesion encompassing skin, subcutaneous tissue as well as bone. PROCEDURES PERFORMED: Excision of left third digit lesion and revision encompassing excision skin, subcutaneous tissue and bone and intermediate flap repair approximately 1.5 cm in size and digital nerve block. SURGEON: Tarun Gupta MD. ANESTHESIA: Monitored anesthesia care with digital nerve block and local. ESTIMATED BLOOD LOSS: Minimal. FINDINGS: Calcified and hypertrophic scar along the medial aspect of the right third finger, where he writes with a pen approximately 1.5 cm in size. DISPOSITION: The patient tolerated the procedure well. INDICATIONS FOR PROCEDURE: The patient is an 84-year-old male known to us. We had seen him before for gastroesophageal reflux disease as well as colitis. We have seen him in the office for a lesion of the right third digit along the medial aspect. He was using a table saw and he transected the distal tips of digits 3 through 5. Along the medial aspect of the third digit where he writes, he has a hypertrophic tissue, which is deep and likely cartilaginous or calcified bone. He states that this has gotten larger over time and impeded his ability to write. The accident occurred approximately 2013. He would like to have the distal end of the finger repaired back to normal anatomy to allow him to write. DESCRIPTION OF PROCEDURE: The patient was brought to the operating room and laid supine on the table. After adequate IV pain and sedative medications and general laryngeal mask airway intubation, the hand was prepped and draped in a standard surgical fashion. A digital nerve block was then performed using 0.5% Marcaine with epinephrine along the bilateral aspects of the digit to the proximal phalanx. The lesion was then anesthetized as well. A skin incision along the medial aspect and vertically was made using a 15 blade. There was a hypertrophic subcutaneous tissue, fat pad as well as bone. The soft tissue was excised using a 15 blade. We then proceeded to use a rongeur to excise the calcified bone back to normal anatomic diameter. A bone rasp was then used to smooth out the edges of the bone and good hemostasis was achieved using electrocautery. The entire dimension of the lesion was approximately 1.5 cm in size. We then proceeded with intermediate flap closure. The redundant skin was excised using a 15 blade. We then proceeded with a deep full thickness skin as well as reapproximation of the soft tissue using interrupted 3-0 silk sutures. Good hemostasis was observed. The wound was then cleaned and covered with nonstick followed by dry sterile dressing. The patient tolerated the procedure well. He will be instructed to remove the dressing tomorrow and then to cover with a gauze dressing as frequently as possible to keep the area clean and dry at all times. We will have him follow up in the office in approximately two weeks to remove the sutures. Job ID: [id number] DocumentID: [id number] Dictated Date: 09/05/2020 14:36:48 Linking Machine Operator Date: 09/05/2020 17:19:20 Dictated By: TARUN GUPTA MD
== END 2020-09-05 16:18 | disposition home or self-care (01) ==
LOC: SDC 10:50
PROVIDERS: ATTEND Surgery
DX: M85.641 Other cyst of bone, right hand (principal); I10 Essential (primary) hypertension; I25.10 Atherosclerotic heart disease of native coronary artery without angina pectoris; K21.9 Gastro-esophageal reflux disease without esophagitis; Z79.899 Other long term (current) drug therapy; Z79.82 Long term (current) use of aspirin
CPT/HCPCS: 87081; 88304

== ENCOUNTER → 2021-05-01 | Outpatient (CLI) | payer MEDICARE, OTHER ==
[~2021-05-01] MED LIST changes: +TRAM50TA3 PO
== END ==
LOC: CARD 08:30
PROVIDERS: ATTEND Internal Medicine Cardiovascular Disease
DX: I08.0 Rheumatic disorders of both mitral and aortic valves (principal); I10 Essential (primary) hypertension
CPT/HCPCS: 93306

== ENCOUNTER 2021-06-04 05:42 | Outpatient (CLI) | payer MEDICARE, OTHER ==
[~2021-06-04] VITALS: Ht 167.7 cm; Wt 80.9 kg
== END 2021-06-04 11:37 | disposition home or self-care (01) ==
LOC: PREOP 05:42
PROVIDERS: ATTEND Surgery
DX: Z01.818 Encounter for other preprocedural examination (principal)

== ENCOUNTER 2021-06-07 08:49 | Day surgery (SDC) | payer MEDICARE, OTHER ==
[2021-06-07] VITALS (13 sets, daily range): BP systolic 102–143; BP diastolic 41–72
[~2021-06-07] VITALS: Ht 167.7 cm; Wt 80.9 kg
[2021-06-07] MEDS ORDERED: LACTATED RINGERS 1,000 ML IV PRN ×2 (09:00)
[2021-06-07] MEDS ORDERED: ceFAZolin 2 GM IV Premixed 50 ML IV ONE (09:00)
--- NOTE | 2021-06-07 09:19 | Progress Note-Pre Operative ---
Pre-Operative Progress Note H&P Reviewed The H&P was reviewed, patient examined and no changes noted. Date Seen by Provider: Jun 07, 2021 Time Seen by Provider: 09:15 Date H&P Reviewed: Jun 07, 2021 Time H&P Reviewed: 09:05 Pre-Operative Diagnosis: Incarcerated umbilical hernia, Screening colonoscopy JORGE GILMAN APRN Jun 07, 2021 09:19
--- NOTE | 2021-06-07 09:26 | Discharge Inst-Surgical ---
D/C Lap Instructions-KIDO Reconcile Patient Problems Problems Reviewed?: Yes New, Converted, or Re-Newed RX: RX on Chart Follow Up Appt in 2 weeks Activity as tolerated No driving for 24 hours No driving while on pain medications Incentive Spirometry use every 2 hours while awake Regular Diet Symptoms to Report: Fever over 101 degree F, Nausea/Vomiting Infection Signs and Symptoms to report: Increased redness, Foul odor of wound, Increased drainage Bathing instructions: May shower Operative Area Clean/Dry; Keep incision clean/dry If any problems/questions: Contact your physician or go to Emergency Room JORGE GILMAN APRN Jun 07, 2021 09:26
[2021-06-07] MEDS ORDERED: HYDR-3817 PO (09:27)
[2021-06-07] MEDS ORDERED: IBUPROFEN 600 MG (MOTRIN) TAB PO PRN (09:30)
[2021-06-07] MEDS ORDERED: HYDROmorphone 2 MG/ML VIAL (DILAUDID) IVP PRN (09:30)
[2021-06-07] MEDS ORDERED: ROCURONIUM 10 MG/ML 5 ML SYRINGE IV ONE (10:10)
[2021-06-07] MEDS ORDERED: proPOfol 200 MG/20 ML (DIPRIVAN) VIAL IV ONE (10:10)
[2021-06-07] MEDS ORDERED: fentaNYL INJ 100 MCG/2 ML AMP ONE (10:10)
[2021-06-07] MEDS ORDERED: LIDOCAINE PF 2% 5 ML (XYLOCAINE) VIAL ONE (10:10)
[2021-06-07] MEDS ORDERED: ONDANSETRON 4 MG/2 ML (SDV) Z0FRAN ONE (10:10)
[2021-06-07] MEDS ORDERED: SEVOFLURANE (ULTANE) 15 ML INHAL SOLN ONE ×2 (10:10→13:55)
[2021-06-07] MEDS ORDERED: HYDROcodone/APAP 5 MG/325 MG (LORTAB) TAB PO PRN (11:15)
[2021-06-07] MEDS ORDERED: LIDOCAINE/EPI 1%-1:200,000 (XYLOCAINE) 30 ML VIAL ONE (11:49)
--- NOTE | 2021-06-07 12:28 | Progress Note-Post Operative ---
Post-Operative Progess Note Surgeon (s)/Plant Safety Leader (s) Surgeon Dr. Tod Hidalgo M.D. Plant Safety Leader: Luke Gilman CHANCELLOR Pre-Operative Diagnosis Incarcerated umbilical hernia, Screening colonoscopy Post-Operative Diagnosis Incarcerated umbilical hernia, chronic stage II external and internal hemorrhoids, moderate to severe sigmoid diverticulosis Procedure & Operative Findings Date of Procedure 06/07/21 Procedure Performed/Findings Open incarcerated umbilical hernia repair with mesh, Colonoscopy Anesthesia Type GET Estimated Blood Loss Estimated blood loss (mL): Minimal Specimens/Packing Specimens Removed 1) Hernia Sac LUKE GILMAN CHANCELLOR Jun 07, 2021 12:28
[2021-06-07] MEDS ORDERED: ONDANSETRON 4 MG/2 ML (SDV) Z0FRAN IVP PRN (13:15)
[2021-06-07] MEDS ORDERED: fentaNYL INJ 100 MCG/2 ML AMP IVP ONE (13:15)
--- NOTE | 2021-06-07 13:44 | Anesthesia-General Post-Op ---
General Patient Condition Mental Status/LOC: Same as Preop Cardiovascular: Satisfactory Nausea/Vomiting: Absent Respiratory: Satisfactory Pain: Controlled Complications: Absent Post Op Complications Complications None Follow Up Care/Instructions Patient Instructions None needed. Anesthesia/Patient Condition Patient Condition Patient is doing well in PACU, does C/O some abdominal pain which is to be expected, stable vital signs, no apparent adverse anesthesia problems. PORTIA MARQUEZ DO Jun 07, 2021 13:44
[2021-06-07] MEDS: ONDANSETRON 4 MG/2 ML (SDV) Z0FRAN IVP PRN ×2 (13:54→13:55)
[2021-06-07] MEDS ORDERED: GLYCOPYRROLATE 0.2 MG/ML (ROBINUL) 2 ML VIAL ONE (13:57)
[2021-06-07] MEDS ORDERED: NEOSTIGMINE 3 MG/3 ML VIAL ONE (13:57)
--- NOTE | 2021-06-07 15:04 | OPERATIVE REPORT ---
DATE OF SERVICE: 06/07/2021 ATTENDING PRIMARY CARE PHYSICIAN: Faith Can APRN PREOPERATIVE DIAGNOSIS: Symptomatic incarcerated umbilical hernia, screening colonoscopy. POSTOPERATIVE DIAGNOSES: Symptomatic incarcerated umbilical hernia, screening colonoscopy with omentum within the hernia sac with no strangulation. Chronic stage II external and internal hemorrhoids, [id number] sigmoid diverticulosis. PROCEDURE: Open repair of incarcerated umbilical hernia with mesh, colonoscopy. SURGEON: Tarun Gupta MD ANESTHESIA: Monitored anesthesia care. ESTIMATED BLOOD LOSS: Minimal. FINDINGS: Symptomatic incarcerated umbilical hernia, screening colonoscopy with omentum within the hernia sac with no strangulation. Chronic stage II external and internal hemorrhoids, [id number] sigmoid diverticulosis. DISPOSITION: The patient tolerated the procedure well. INDICATIONS: The patient is an 85-year-old male who has had an outpouching in the umbilical region for a few years; however, he states that this has become larger in size as well as significantly more painful. Upon examination, he was found to have an incarcerated umbilical hernia, which was tender to palpation. There is no overlying redness or erythema. He is otherwise tolerating regular diet and having normal bowel movements as well. He is also in need of a screening colonoscopy. His last colonoscopy was greater than 10 years ago. DESCRIPTION OF PROCEDURE: The patient was brought to the operating room, laid supine on the table. After adequate IV pain and sedative medications and general endotracheal intubation, the abdomen was prepped and draped in standard surgical fashion. A 0.5% Marcaine with epinephrine was then used to anesthetize the overlying skin in the infraumbilical rim and a crescent shaped skin incision made using a 15 blade. Subcutaneous tissue was dissected using electrocautery and then the hernia sac was identified and completely dissected out using blunt dissection as well as cautery until the fascial base was identified. The hernia sac was then opened using Metzenbaum scissors with only omentum within the hernia sac. There were no signs of any strangulation. The hernia sac was then fully excised under direct visualization and the omentum reduced back into the peritoneal cavity. The fascial defect was only approximately 1.5 cm in size. A 6.4 round coated polypropylene mesh was then placed into the defect and sutured transfascially in a concentric manner to the mesh using 0 Prolene interrupted sutures. Good hemostasis was observed. The subcutaneous tissue was then reapproximated using 3-0 Vicryl interrupted sutures and skin was closed using 4-0 Monocryl running subcuticular suture. Wound was then cleaned and covered with Dermabond. The umbilicus was then filled with tonsil sponges followed by 4 x 4 gauze followed by large Op-Site. The patient was then placed in frog-leg position and a digital rectal examination was performed, which revealed chronic stage II external and internal hemorrhoids, not actively edematous nor inflamed and no bleeding. Normal sphincter tone was felt and there were no palpable masses. Prostate gland was palpable and appeared normal. The endoscope was then intubated and anus and rectum gently insufflated. The endoscope was then advanced to the valves of Hopkins of the rectum with no polyps or any neoplasms identified. Through the sigmoid colon, a moderate to severe sigmoid diverticulosis was identified. There were no inflammatory changes to indicate any active diverticulitis. The endoscope was then advanced and remainder of the descending, transverse and ascending colon to the cecum, which were normal. There were no polyps or any neoplasms identified. The endoscope was then slowly withdrawn with taking a second look and suctioning of residual air with no additional findings. The patient tolerated the procedure well. We will start IV normal pain medication as well as a clear liquid diet. Once he is tolerating clears, has good pain control with oral pain medications, ambulating well, we will discharge him home. We will also recommend a high fiber diet with at least 30 grams of fiber daily as well as significant amounts of water to promote soft stools on a daily basis. If he is asymptomatic, he does not need another colonoscopy for another 10 years. Job ID: [id number] DocumentID: [id number] Dictated Date: 06/07/2021 13:00:06 Regrader Date: 06/07/2021 15:04:28 Dictated By: TARUN GUPTA MD
== END 2021-06-07 15:50 | disposition home or self-care (01) ==
LOC: SDC 08:49
PROVIDERS: ATTEND Surgery
DX: K42.0 Umbilical hernia with obstruction, without gangrene (principal); Z12.11 Encounter for screening for malignant neoplasm of colon; K57.30 Diverticulosis of large intestine without perforation or abscess without bleeding; K64.1 Second degree hemorrhoids; K64.4 Residual hemorrhoidal skin tags; I12.9 Hypertensive chronic kidney disease with stage 1 through stage 4 chronic kidney disease, or unspecified chronic kidney disease; N18.30 Chronic kidney disease, stage 3 unspecified; I25.10 Atherosclerotic heart disease of native coronary artery without angina pectoris; Z95.0 Presence of cardiac pacemaker; E78.00 Pure hypercholesterolemia, unspecified; Z79.899 Other long term (current) drug therapy; M25.551 Pain in right hip
CPT/HCPCS: 49587; G0121; 87081

== ENCOUNTER 2022-04-25 21:23 | Emergency (ER) | payer MEDICARE, OTHER ==
[~2022-04-25] VITALS: Ht 170 cm; Wt 79.0 kg
[~2022-04-25 21:23] MED LIST changes: -NIRM1TAB5 PO
[2022-04-25 21:52] LABS: BASOPHILS % (AUTO) 0 % (0-10); EOSINOPHILS # (AUTO) 0.1 10^3/uL (0.0-0.3); EOSINOPHILS % (AUTO) 1 % (0-10); HEMOGLOBIN 14.7 g/dL (13.3-17.7); MEAN CORPUSCULAR HEMOGLOBIN 33 pg (25-34); MEAN CORPUSCULAR HGB CONC 35 g/dL (32-36); MEAN CORPUSCULAR VOLUME 96 fL (80-99); MONOCYTES # (AUTO) 0.6 10^3/uL (0.0-1.0); MONOCYTES % (AUTO) 8 % (0-12); WHITE BLOOD COUNT 7.5 10^3/uL (4.3-11.0)
[2022-04-25 21:54] LABS: HEMATOCRIT 43 % (40-54); LYMPHOCYTES # (AUTO) 1.8 10^3/uL (1.0-4.0); LYMPHOCYTES % (AUTO) 25 % (12-44); MEAN PLATELET VOLUME 10.4 fL (9.0-12.2); NEUTROPHILS # (AUTO) 4.9 10^3/uL (1.8-7.8); NEUTROPHILS % (AUTO) 66 % (42-75); PLATELET COUNT 111 10^3/uL (130-400)
[2022-04-25 22:04] LABS: ALBUMIN 3.3 GM/DL (3.2-4.5)
[2022-04-25 22:05] LABS: POTASSIUM 4.5 MMOL/L (3.6-5.0)
[2022-04-25 22:06] LABS: CALCIUM 9.3 MG/DL (8.5-10.1)
[2022-04-25 22:09] LABS: BILIRUBIN,TOTAL 0.7 MG/DL (0.1-1.0)
[2022-04-25 22:11] LABS: CREATININE SERUM 1.26 MG/DL (0.60-1.30)
--- NOTE | 2022-04-25 22:18 | Diagnostic Imaging Report ---
INDICATION: Short of breath. EXAMINATION: Chest 04/25/2022 COMPARISON: 05/11/2019 FINDINGS: 2 views of chest. Left-sided pacemaker stable. Heart and pulmonary vasculature unremarkable. 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 There are no infiltrates or effusions. No pneumothorax. IMPRESSION: 1. Chronic findings. No acute process. Dictated by: Dictated on workstation # [id number]
--- NOTE | 2022-04-25 22:32 | ED Respiratory ---
General Chief Complaint: Respiratory Problems Stated Complaint: SOB Nursing Triage Note: C/O SINUS PRESSURE/PAIN X6 WEEKS, INCREASED SOA, WEAKNESS X3 DAYS Source: patient Exam Limitations: no limitations (JON ESCOBAR APRN) History of Present Illness Date Seen by Provider: Apr 25, 2022 Time Seen by Provider: 21:35 Initial Comments Patient is an 86-year-old male who presents to the emergency department for evaluation of shortness of air and weakness for approximately 3 days. Patient states he is also had some sinus pain and pressure for 6 weeks. He states he been seen by multiple providers for this issue. He states he had a sinus CT at this hospital earlier today. He was not made aware of the results. States he has not had a fever but has had subjective chills. States he has had a nonproductive cough. Denies any vomiting or diarrhea. Denies any chest pain. (JON ESCOBAR APRN) Allergies and Home Medications Allergies Coded Allergies: acetaminophen (Unverified Allergy, Mild, 06/04/21) cefuroxime (Unverified Allergy, Mild, 06/04/21) propoxyphene (Unverified Allergy, Mild, 06/04/21) aspirin (Verified Allergy, Unknown, TAKES AT HOME WHEN ITCHES TAKES BENADRYL, 06/04/21) azithromycin (Verified Allergy, Unknown, 06/04/21) clarithromycin (Verified Allergy, Unknown, 06/04/21) codeine (Verified Allergy, Unknown, 06/04/21) erythromycin base (Verified Allergy, Unknown, 06/04/21) fentanyl (Verified Allergy, Unknown, PATCH ONLY, PATIENT STATES CAN TOLERATE IV MEDICATION, 06/04/21) meperidine (Verified Allergy, Unknown, 06/04/21) morphine (Unverified Allergy, Unknown, NAUSEATED, 06/04/21) Patient Home Medication List Home Medication List Reviewed: Yes (JON ESCOBAR APRN) Allopurinol (Allopurinol) 300 Mg Tablet, 300 MG PO DAILY, (Reported) Entered as Reported by: CORA BEATTY on 11/12/19 1229 Aspirin (Aspirin) 81 Mg Tab.chew, 81 MG PO DAILY, (Reported) Entered as Reported by: CORA BEATTY on 08/31/20 1603 Enalapril Maleate (Enalapril Maleate) 10 Mg Tablet, 10 MG PO BID, (Reported) Entered as Reported by: ELIER WILSON on 06/11/18 0914 Hydrocodone/Acetaminophen (Hydrocodone-Acetamin 7.5-325) 1 Each Tablet, 1 EACH PO Q4H PRN for PAIN-BREAKTHROUGH Prescribed by: JORGE GILMAN on 06/07/21 0927 Nirmatrelvir/Ritonavir (Paxlovid 150-100 mg Pack (Eua)) 150 Mg-100 Mg Tablet, 1 EACH PO BID Prescribed by: Jon Escobar on 04/25/22 223 Omeprazole (Omeprazole) 40 Mg Capsule.dr, 40 MG PO DAILY, (Reported) Entered as Reported by: CORA BEATTY on 07/31/20 1056 Review of Systems Review of Systems Constitutional: see HPI, chills, weakness EENTM: see HPI Respiratory: see HPI, cough, short of breath Cardiovascular: no symptoms reported Gastrointestinal: no symptoms reported Genitourinary: no symptoms reported Musculoskeletal: no symptoms reported Skin: no symptoms reported Psychiatric/Neurological: No Symptoms Reported Hematologic/Lymphatic: No Symptoms Reported Immunological/Allergic: no symptoms reported (JON ESCOBAR APRN) Past Hcepwhw-Djddym-Myxgqr Hx Patient Social History Tobacco Use?: No Substance use?: No Alcohol Use?: No Pt feels they are or have been: No (JON ESCOBAR APRN) Immunizations Up To Date Tetanus Booster (TDap): Less than 5yrs First/Initial COVID19 Vaccinat: 10/30/20 Second COVID19 Vaccination Issa: 11/29/20 Third COVID19 Vaccination Date: 10/30/20 (JON ESCOBAR APRN) Seasonal Allergies Seasonal Allergies: No (JON ESCOBAR APRN) Past Medical History Surgery/Hospitalization HX: BILATERAL ROTATOR CUFF, PPM X3, STENT, CAD, HTN, PARKINSONS, BPH, ARTHRITIS, ABDOMINAL HERNIA, CATARACTS. Surgeries: Yes (pacemaker, TURP, bilat rotator cuff) Coronary Stent, Orthopedic, Pacemaker Respiratory: No Currently Using CPAP: No Currently Using BIPAP: No Cardiac: Yes (pacemaker/STENT) Coronary Artery Disease, High Cholesterol, Hypertension Neurological: Yes (NO MEDS FOR PARKINSON'S) Parkinson's Disease Reproductive Disorders: No Genitourinary: Yes Benign Prostatic Hyperpl Gastrointestinal: Yes Abdominal Hernia Musculoskeletal: Yes Arthritis Endocrine: No HEENT: No Cataract Cancer: Yes Skin What Type of Treatment Did You: Surgical Intervention Psychosocial: No Integumentary: Yes (lesion 2nd finger) Blood Disorders: No (JON ESCOBAR APRN) Family Medical History Heart Disease (JON ESCOBAR APRN) Physical Exam Vital Signs - First Documented 04/25/22 21:28 Temp 36.3 Pulse 80 Resp 18 B/P (MAP) 174/74 (107) Pulse Ox 95 O2 Delivery Room Air (ZAIRA,MARBELLA K DO) Capillary Refill : Less Than 3 Seconds (JON ESCOBAR APRN) Height: 5'7.00" Weight: 172lbs. 0.0oz. 78.158724he; 27.00 BMI Method:Stated General Appearance: WD/WN, no apparent distress HEENT: PERRL/EOMI, normal ENT inspection, TMs normal, pharynx normal Neck: non-tender, full range of motion, supple, normal inspection Respiratory: chest non-tender, lungs clear, normal breath sounds, no respiratory distress, no accessory muscle use Cardiovascular: regular rate, rhythm Gastrointestinal: normal bowel sounds, non tender, soft Neurologic/Psychiatric: no motor/sensory deficits, alert, normal mood/affect, oriented x 3 Skin: normal color, warm/dry (JON ESCOBAR APRN) Progress/Results/Core Measures Suspected Sepsis SIRS Temperature: Pulse: 80 Respiratory Rate: 18 Laboratory Tests 04/25/22 21:42: White Blood Count 7.5 Blood Pressure 174 /74 Mean: 107 Laboratory Tests 04/25/22 21:42: Creatinine 1.26, Platelet Count 111L, Total Bilirubin 0.7 (JON ESCOBAR APRN) Results/Orders Lab Results Laboratory Tests Test 04/25/22 21:42 Range/Units White Blood Count 7.5 4.3-11.0 10^3/uL Red Blood Count 4.43 4.30-5.52 10^6/uL Hemoglobin 14.7 13.3-17.7 g/dL Hematocrit 43 40-54 % Mean Corpuscular Volume 96 80-99 fL Mean Corpuscular Hemoglobin 33 25-34 pg Mean Corpuscular Hemoglobin Concent 35 32-36 g/dL Red Cell Distribution Width 14.6 H 10.0-14.5 % Platelet Count 111 L 130-400 10^3/uL Mean Platelet Volume 10.4 9.0-12.2 fL Immature Granulocyte % (Auto) 1 % Neutrophils (%) (Auto) 66 42-75 % Lymphocytes (%) (Auto) 25 12-44 % Monocytes (%) (Auto) 8 0-12 % Eosinophils (%) (Auto) 1 0-10 % Basophils (%) (Auto) 0 0-10 % Neutrophils # (Auto) 4.9 1.8-7.8 10^3/uL Lymphocytes # (Auto) 1.8 1.0-4.0 10^3/uL Monocytes # (Auto) 0.6 0.0-1.0 10^3/uL Eosinophils # (Auto) 0.1 0.0-0.3 10^3/uL Basophils # (Auto) 0.0 0.0-0.1 10^3/uL Immature Granulocyte # (Auto) 0.1 0.0-0.1 10^3/uL Percent Immature Platelet Fraction 3.5 0.0-7.6 % Sodium Level 134 L 135-145 MMOL/L Potassium Level 4.5 3.6-5.0 MMOL/L Chloride Level 107 98-107 MMOL/L Carbon Dioxide Level 17 L 21-32 MMOL/L Anion Gap 10 5-14 MMOL/L Blood Urea Nitrogen 34 H 7-18 MG/DL Creatinine 1.26 0.60-1.30 MG/DL Estimat Glomerular Filtration Rate 55 BUN/Creatinine Ratio 27 Glucose Level 130 H 70-105 MG/DL Calcium Level 9.3 8.5-10.1 MG/DL Corrected Calcium 9.9 8.5-10.1 MG/DL Total Bilirubin 0.7 0.1-1.0 MG/DL Aspartate Amino Transf (AST/SGOT) 23 5-34 U/L Alanine Aminotransferase (ALT/SGPT) 30 0-55 U/L Alkaline Phosphatase 106 40-136 U/L Total Protein 7.0 6.4-8.2 GM/DL Albumin 3.3 3.2-4.5 GM/DL Influenza Type A (RT-PCR) Not Detected Not Detecte Influenza Type B (RT-PCR) Not Detected Not Detecte SARS-CoV-2 RNA (RT-PCR) Detected H Not Detecte (MARBELLA MENESES DO) Vital Signs/I&O 04/25/22 04/25/22 04/25/22 21:28 21:28 23:00 Temp 36.3 36.0 Pulse 80 65 Resp 18 16 B/P (MAP) 174/74 (107) 159/82 Pulse Ox 95 98 O2 Delivery Room Air Room Air Room Air (MARBELLA MENESES DO) Vital Signs/I&O Capillary Refill : Less Than 3 Seconds (JON ESCOBAR APRN) Blood Pressure Mean: 107 Progress Note : Progress Note Patient is nontoxic and well-hydrated on exam. Vital signs are reassuring without tachypnea or hypoxia. Patient's oxygen saturations were 95% even after ambulating to the exam room from the waiting room. No adventitious lung sounds or increased work of breathing noted. Patient is awake alert and answers all questions appropriately. Orders placed for CBC, CMP, chest x-ray, EKG, and rapid COVID/flu testing. CBC is unremarkable. CMP is also reassuring. Chest x-ray reveals no acute abnormality. EKG without acute ischemic change or arrhythmia. Rapid COVID test is positive. I ran possible interactions between the patient's provided medication list and Paxlovid. There are no serious interactions noted. Patient's calculated GFR is 55. Thus patient will be given a reduced dose of Paxlovid of 150/100 twice daily. Follow-up with PCP. Return precautions for urgent symptomology discussed. Patient verbalized understanding. (JON ESCOBAR APRN) ECG EKG : EKG Time: 21:39 Rate: 68 Intervals atrial sensed ventricularly paced rhythm (JON ESCOBAR APRN) Departure Impression Primary Impression: COVID-19 Disposition: 01 HOME, SELF-CARE Condition: Stable Departure-Patient Inst. Decision time for Depature: 22:30 (JON ESCOBAR APRN) Referrals: MARTIN DYE MD (PCP/Family) Primary Care Physician Patient Instructions: COVID-19 ED Scripts Nirmatrelvir/Ritonavir (Paxlovid 150-100 mg Pack (Eua)) 150 Mg-100 Mg Tablet 1 EACH PO BID for 5 Days, #10 TAB 0 Refills Prov: JON ESCOBAR APRN 04/25/22 ATTENDING PHYSICIAN NOTE: I WAS PHYSICALLY PRESENT ER PHYSICIAN, BUT I WAS NOT INVOLVED IN ANY DECISION MAKING OR ANY CARE OF THIS PATIENT, AND I AM NOT COLLABORATING PHYSICIAN. (MARBELLA MENESES DO) JON ESCOBAR APRN Apr 25, 2022 22:32 MARBELLA MENESES DO Apr 26, 2022 03:32
[2022-04-25] MEDS ORDERED: NIRM1TAB5 PO (22:35)
[2022-04-25 23:00] VITALS: BP 159/82
== END 2022-04-25 23:02 | disposition home or self-care (01) ==
LOC: EDUNIT# 21:23 → ER 21:25
DX: U07.1 COVID-19 (principal); R06.02 Shortness of breath; R05.9 Cough, unspecified; J34.89 Other specified disorders of nose and nasal sinuses
CPT/HCPCS: 36415; 71045; 80053; 85025; 87636; 93005

== ENCOUNTER → 2022-04-25 | Outpatient (CLI) | payer MEDICARE, OTHER ==
[~2022-04-25] MED LIST changes: +HYDR-3817 PO; +NIRM1TAB5 PO
--- NOTE | 2022-04-25 10:04 | Diagnostic Imaging Report ---
PROCEDURE: CT sinuses without contrast TECHNIQUE: Multiple contiguous axial images were obtained through the sinuses without the use of intravenous contrast. Coronal and sagittal reformations were then performed. Auto Exposure Controls were utilized during the CT exam to meet ALARA standards for radiation dose reduction. INDICATION: 86-year-old male with headache, earache and congestion. COMPARISONS: None FINDINGS: Axial images in sagittal and coronal reconstructions of the paranasal sinuses show moderate acute on chronic maxillary sinus disease, right worse than left. The ostiomeatal complexes are patent. The ethmoid air cells, sphenoid sinuses and frontal sinuses appear well pneumatized. There is slight S-type curvature of the nasal septum. Orbits including the both globes, retro-orbital extraconal, conal and intraconal spaces are normal. Zygomatic arches and pterygoid plates are symmetric. Mastoid air cells appear well pneumatized. IMPRESSION: Moderate acute on chronic bilateral maxillary sinus disease, right worse than left. The ostiomeatal complexes are patent. Dictated by: Dictated on workstation # [id number]
== END ==
LOC: RAD 07:23
PROVIDERS: ATTEND Family Medicine
DX: J32.0 Chronic maxillary sinusitis (principal)
CPT/HCPCS: 70486

== ENCOUNTER → 2022-05-09 | Outpatient (CLI) | payer MEDICARE, OTHER ==
[~2022-05-09] MED LIST changes: +NIRM1TAB5 PO
== END ==
LOC: CARD 09:38
PROVIDERS: ATTEND Internal Medicine Cardiovascular Disease
DX: I08.0 Rheumatic disorders of both mitral and aortic valves (principal); I11.9 Hypertensive heart disease without heart failure
CPT/HCPCS: 93306

== ENCOUNTER → 2022-05-20 | Outpatient (CLI) | payer MEDICARE, OTHER ==
[~2022-05-20] MED LIST changes: +CATHETER FLUSH 10 ML SYR IV PRN; +IOHEXOL 350 MG/ML 100 ML (OMNIPAQUE 350) VIAL IV ONE; +NS 100 ML (IVPB) BAG IV ONE
[2022-05-20 10:23] LABS: CREATININE SERUM 1.55 MG/DL (0.60-1.30)
--- NOTE | 2022-05-20 14:47 | Diagnostic Imaging Report ---
EXAMINATION: CTA of the neck TECHNIQUE: Axial postcontrast CT of the neck obtained utilizing CTA protocol. Coronal, sagittal, and MIPS reconstructions performed. HISTORY: Occlusion and stenosis of the bilateral carotid arteries. COMPARISON: None available FINDINGS: Vascular: Aortic arch is normal in caliber. The great vessels are patent. The right common carotid artery is tortuous. Severe atherosclerosis within the right proximal cervical ICA resulting in 70% stenosis. Tortuous left common carotid artery. The proximal left cervical ICA demonstrates 80% stenosis. The vertebral arteries are patent and normal in caliber. Proximal basilar fenestration is noted. No vertebral artery stenosis identified. Nonvascular: The included views of the head demonstrates no significant abnormality. The nasopharynx, oropharynx, hypopharynx,, and larynx are normal. The thyroid gland, submandibular gland, and parotid glands are normal. No pathologic lymphadenopathy. The included views of the chest demonstrate interstitial thickening and scattered groundglass opacities bilaterally. The osseous structures demonstrate hyperostosis of the right 3rd rib. Multilevel degenerative changes of the cervical spine with mild to moderate multilevel spinal canal and neural foraminal narrowing. IMPRESSION: 80% left and 70% right proximal cervical ICA stenosis per NASCET criteria. No vertebral artery stenosis. Proximal basilar fenestration is a normal variant. Scattered bilateral groundglass opacities within the visualized lungs may be seen with pulmonary edema or infection. Mild to moderate multilevel cervical spondylosis. Dictated by: Dictated on workstation # [id number]
== END ==
LOC: RAD 09:42
PROVIDERS: ATTEND Internal Medicine Cardiovascular Disease
DX: I65.23 Occlusion and stenosis of bilateral carotid arteries (principal); M47.812 Spondylosis without myelopathy or radiculopathy, cervical region
CPT/HCPCS: 36415; 70498; 82565; 84520

== ENCOUNTER 2022-06-21 12:00 | Emergency (ER) | payer MEDICARE, OTHER ==
[~2022-06-21] VITALS: Ht 167 cm; Wt 78.0 kg
[~2022-06-21 12:00] MED LIST changes: -CATHETER FLUSH 10 ML SYR IV PRN; -IOHEXOL 350 MG/ML 100 ML (OMNIPAQUE 350) VIAL IV ONE; -NS 100 ML (IVPB) BAG IV ONE
[2022-06-21] MEDS ORDERED: NS IV 1000 ML 1,000 ML IV STA (12:29)
[2022-06-21 12:34] LABS: BASOPHILS # (AUTO) 0.1 10^3/uL (0.0-0.1); BASOPHILS % (AUTO) 1 % (0-10); EOSINOPHILS % (AUTO) 0 % (0-10); HEMATOCRIT 41 % (40-54); HEMOGLOBIN 13.9 g/dL (13.3-17.7); LYMPHOCYTES # (AUTO) 1.9 10^3/uL (1.0-4.0); LYMPHOCYTES % (AUTO) 22 % (12-44); MEAN CORPUSCULAR HEMOGLOBIN 34 pg (25-34); MEAN CORPUSCULAR HGB CONC 34 g/dL (32-36); MEAN CORPUSCULAR VOLUME 99 fL (80-99); MONOCYTES # (AUTO) 0.7 10^3/uL (0.0-1.0); MONOCYTES % (AUTO) 8 % (0-12); NEUTROPHILS # (AUTO) 5.5 10^3/uL (1.8-7.8); NEUTROPHILS % (AUTO) 66 % (42-75); PLATELET COUNT 189 10^3/uL (130-400); WHITE BLOOD COUNT 8.4 10^3/uL (4.3-11.0)
--- NOTE | 2022-06-21 12:36 | ED EENT ---
History of Present Illness General Chief Complaint: Ear Problems Stated Complaint: DEHYDRATION Nursing Triage Note: PT ARRIVED PER EMS, PT HAS N/V CONSTIPATION, HAS NOT BEEN VOIDING VERY MUCH. 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 DR CHRIS AND HAD EAR DRUMS CUT OPEN, PT IS VERY DIZZY VOMITS UPON MVMT. RATES PAIN 2/10 IN BOTH EARS. PT FAMILY WANTS HIM TO BE TRANSFERRED TO [place] FOR EAR DR Source: family (daughter) Exam Limitations: physical impairment (hard of hearing) History of Present Illness Date Seen by Provider: Jun 21, 2022 Time Seen by Provider: 12:20 Initial Comments Patient is an 86-year-old male who presents to the emergency room with a chief complaint of nausea and vomiting onset over the course of the last 18 hours or so. He has also been profoundly constipated for the last 4 days. Medical history complicated by recent diagnosis of bullous myringitis, he saw ENT yesterday and had bilateral myringotomies. He is currently on medication for the myringitis. He has not taken anything for feeling dizzy and nauseous and vomiting. No fevers or chills. No sore throat. No shortness of breath or cough. Anytime he moves his head he becomes very dizzy and then vomits. Daughter is present with the patient as is the patient's . They are very concerned about his ability to stay hydrated and keep his medications down. Daughter mentions that they spoke with the ENT surgeons at [place] where he had his procedure done and they were indicating they wanted him transferred to [place] for these intractable symptoms. Patient presents stable vital signs not actively vomiting. Is a little nauseated. Timing/Duration: abrupt Severity: severe Location: ear (R), ear (L) Prearrival Treatment: prescription meds (zofran) Associated Symptoms: change in hearing, ear drainage, poor fluid intake, other (constipation) Allergies and Home Medications Allergies Coded Allergies: acetaminophen (Unverified Allergy, Mild, 06/04/21) cefuroxime (Unverified Allergy, Mild, 06/04/21) propoxyphene (Unverified Allergy, Mild, 06/04/21) Ilfaial-MAV-WfV Reductase Inhibitor (Verified Allergy, Unknown, 06/21/22) acyclovir (Verified Allergy, Unknown, 06/21/22) aspirin (Verified Allergy, Unknown, TAKES AT HOME WHEN ITCHES TAKES BENADRYL, 06/04/21) azithromycin (Verified Allergy, Unknown, 06/04/21) clarithromycin (Verified Allergy, Unknown, 06/04/21) clindamycin (Verified Allergy, Unknown, 06/21/22) erythromycin base (Verified Allergy, Unknown, 06/04/21) fentanyl (Verified Allergy, Unknown, PATCH ONLY, PATIENT STATES CAN TOLERATE IV MEDICATION, 06/04/21) meperidine (Verified Allergy, Unknown, 06/04/21) morphine (Unverified Allergy, Unknown, NAUSEATED, 06/04/21) moxifloxacin (Verified Allergy, Unknown, 06/21/22) niacin (Verified Allergy, Unknown, 06/21/22) Patient Home Medication List Home Medication List Reviewed: Yes Allopurinol (Allopurinol) 300 Mg Tablet, 300 MG PO DAILY, (Reported) Entered as Reported by: CORA BEATTY on 11/12/19 1229 Aspirin (Aspirin) 81 Mg Tab.chew, 81 MG PO DAILY, (Reported) Entered as Reported by: CORA BEATTY on 08/31/20 1603 Diazepam (Valium) 2 Mg Tablet, 2 MG PO Q8H PRN for dizziness Prescribed by: KALYANI CATHERINE on 06/21/22 1351 Enalapril Maleate (Enalapril Maleate) 10 Mg Tablet, 10 MG PO BID, (Reported) Entered as Reported by: ELIER WILSON on 06/11/18 0914 Hydrocodone/Acetaminophen (Hydrocodone-Acetamin 7.5-325) 1 Each Tablet, 1 EACH PO Q4H PRN for PAIN-BREAKTHROUGH Prescribed by: JORGE GILMAN on 06/07/21 0927 Nirmatrelvir/Ritonavir (Paxlovid 150-100 mg Pack (Eua)) 150 Mg-100 Mg Tablet, 1 EACH PO BID Prescribed by: Jon Escobar on 04/25/22 2235 Omeprazole (Omeprazole) 40 Mg Capsule.dr, 40 MG PO DAILY, (Reported) Entered as Reported by: CORA BEATTY on 07/31/20 1056 Ondansetron (Ondansetron Odt) 4 Mg Tab.rapdis, 4 MG PO Q8H PRN for NAUSEA/VOMITING Prescribed by: KALYANI CATHERINE on 06/21/22 1350 Review of Systems Review of Systems Constitutional: see HPI, malaise Ears: Dizziness, Pain, Purulent Discharge Nose: no symptoms reported Mouth: no symptoms reported Throat: no symptoms reported Respiratory: no symptoms reported Cardiovascular: no symptoms reported Gastrointestinal: constipation, nausea, vomiting Past Dsckmhs-Ilxvvp-Oekrrr Hx Patient Social History Tobacco Use?: No Substance use?: No Alcohol Use?: No Pt feels they are or have been: No Immunizations Up To Date Tetanus Booster (TDap): Less than 5yrs Influenza Vaccine Up-to-Date: Yes; Up-to-Date First/Initial COVID19 Vaccinat: 10/30/20 Second COVID19 Vaccination Issa: 11/29/20 Third COVID19 Vaccination Date: 10/30/20 Seasonal Allergies Seasonal Allergies: No Past Medical History Surgery/Hospitalization HX: BILATERAL ROTATOR CUFF, PPM X3, STENT, CAD, HTN, PARKINSONS, BPH, ARTHRITIS, ABDOMINAL HERNIA, CATARACTS. PACEMAKER, DEFIBRILLATOR Surgeries: Yes (pacemaker, TURP, bilat rotator cuff) Coronary Stent, Orthopedic, Pacemaker Respiratory: No Currently Using CPAP: No Currently Using BIPAP: No Cardiac: Yes (pacemaker/STENT) Coronary Artery Disease, High Cholesterol, Hypertension Neurological: Yes (NO MEDS FOR PARKINSON'S) Parkinson's Disease Reproductive Disorders: No Genitourinary: Yes Benign Prostatic Hyperpl Gastrointestinal: Yes Abdominal Hernia Musculoskeletal: Yes Arthritis Endocrine: No HEENT: No Cataract Cancer: Yes Skin What Type of Treatment Did You: Surgical Intervention Psychosocial: No Integumentary: Yes (lesion 2nd finger) Blood Disorders: No Family Medical History Heart Disease Physical Exam Vital Signs Vital Signs - First Documented 06/21/22 06/21/22 12:11 14:03 Temp 36.6 Pulse 84 Resp 18 B/P (MAP) 185/103 (130) Pulse Ox 93 O2 Delivery Room Air Height, Weight, BMI Height: 5'7.00" Weight: 172lbs. 0.0oz. 78.724232xz; 27.00 BMI Method:Stated General Appearance: WD/WN, no apparent distress Eyes: bilateral eye normal inspection, bilateral eye PERRL, bilateral eye EOMI Ears: bilateral ear auricle normal, bilateral ear other (bilateral canals with purulent drainage; diffi) Progress/Results/Core Measures Results/Orders Lab Results Laboratory Tests Test 06/21/22 12:05 Range/Units White Blood Count 8.4 4.3-11.0 10^3/uL Red Blood Count 4.14 L 4.30-5.52 10^6/uL Hemoglobin 13.9 13.3-17.7 g/dL Hematocrit 41 40-54 % Mean Corpuscular Volume 99 80-99 fL Mean Corpuscular Hemoglobin 34 25-34 pg Mean Corpuscular Hemoglobin Concent 34 32-36 g/dL Red Cell Distribution Width 15.5 H 10.0-14.5 % Platelet Count 189 130-400 10^3/uL Mean Platelet Volume 10.0 9.0-12.2 fL Immature Granulocyte % (Auto) 4 % Neutrophils (%) (Auto) 66 42-75 % Lymphocytes (%) (Auto) 22 12-44 % Monocytes (%) (Auto) 8 0-12 % Eosinophils (%) (Auto) 0 0-10 % Basophils (%) (Auto) 1 0-10 % Neutrophils # (Auto) 5.5 1.8-7.8 10^3/uL Lymphocytes # (Auto) 1.9 1.0-4.0 10^3/uL Monocytes # (Auto) 0.7 0.0-1.0 10^3/uL Eosinophils # (Auto) 0.0 0.0-0.3 10^3/uL Basophils # (Auto) 0.1 0.0-0.1 10^3/uL Immature Granulocyte # (Auto) 0.3 H 0.0-0.1 10^3/uL Sodium Level 136 135-145 MMOL/L Potassium Level 4.4 3.6-5.0 MMOL/L Chloride Level 101 98-107 MMOL/L Carbon Dioxide Level 24 21-32 MMOL/L Anion Gap 11 5-14 MMOL/L Blood Urea Nitrogen 19 H 7-18 MG/DL Creatinine 1.08 0.60-1.30 MG/DL Estimat Glomerular Filtration Rate 66 BUN/Creatinine Ratio 18 Glucose Level 107 H 70-105 MG/DL Calcium Level 9.6 8.5-10.1 MG/DL My Orders Orders - KALYANI CATHERINE MD Ekg Tracing (06/21/22 12:16) Cbc With Automated Diff (06/21/22 12:29) Basic Metabolic Panel (06/21/22 12:29) Diazepam Injection (Valium Injection) (06/21/22 12:29) Ns Iv 1000 Ml (Sodium Chloride 0.9%) (06/21/22 12:29) Vital Signs/I&O 06/22/22 00:00 Intake Total 1000 ml Balance 1000 ml Blood Pressure Mean: 130 Progress Progress Note : Time: 13:47 Progress Note Patient feels much better after IV Valium 2 mg. Comfortable with discharge to home. Will send Valium p.o. and some more Zofran to his local pharmacy Patient seen and evaluated, patient had physical exam, CBC, chemistry. Exam pertinent for bilateral draining TMs. Afebrile no erythema of the auricle bilaterally. Mild tenderness with manipulation of the auricle. Mucous membranes do appear moist. Patient complains of feeling vertiginous with head movement. No nonfatigable nystagmus. Neuro is nonfocal. Heart is regular, lungs are clear, abdomen is soft. Differential diagnosis vertigo induced by bullous myringitis, dehydration, acute on chronic kidney failure, other central causes of vertigo. Patient had basic laboratory studies performed, CBC and chemistry secondary to seen in the history the patient had some chronic kidney disease from a few months ago. CBC is normal, chemistry is normal and it seems as his renal function has recovered. Patient was treated in the emergency department with Zofran and 2 mg of Valium IV. He had complete relief of his dizziness. I discussed the fact that I did not believe that the patient would meet criteria for inpatient admission at [facility]. He has a scheduled follow-up appointment in a week. As the Valium worked very well for him I advised his daughter that I would be giving him a prescription for the Valium, very low-dose and he can take 2 mg every 8 hours. The patient has been up and ambulatory under his own power to the bathroom. Completely steady gait no ataxia. Very low concern for central causes of vertigo. As the patient recently had bilateral myringotomy I believe this is the cause of his vertigo he feels 100% better and is eager for discharge to home. Return precautions provided. The family verbalized understanding all questions are answered. Initial ECG Impression Date: Jun 21, 2022 Initial ECG Impression Time: 12:22 Initial ECG Rate: 66 Comment ventricular paced rhythm Departure Impression Primary Impression: Vertigo Additional Impressions: recent myringotomy Bullous myringitis of both ears Disposition: 01 HOME, SELF-CARE Condition: Improved Departure-Patient Inst. Decision time for Depature: 13:48 Referrals: MARTIN DYE MD (PCP/Family) Primary Care Physician Patient Instructions: Vertigo ED Add. Discharge Instructions: Drink plenty of fluids to stay well-hydrated. Daily stool softeners as well as magnesium citrate may help get bowels moving as appetite improves. Valium 2 mg by mouth every 8 hours as needed for dizziness. Ondansetron 4 mg every 8 hours as needed for nausea. If fever, worsening symptoms please return to the emergency department for reevaluation. Please keep your follow-up appointment with the nurse research. Scripts Ondansetron (Ondansetron Odt) 4 Mg Tab.rapdis 4 MG PO Q8H PRN for NAUSEA/VOMITING, #15 TAB 0 Refills Prov: KALYANI CATHERINE MD 06/21/22 Diazepam (Valium) 2 Mg Tablet 2 MG PO Q8H PRN for dizziness, #15 TAB Prov: KALYANI CATHERINE MD 06/21/22 Copy Copies To 1: MARTIN DYE MD, KATHRYN M MD Jun 21, 2022 12:36
[2022-06-21 12:37] LABS: POTASSIUM 4.4 MMOL/L (3.6-5.0)
[2022-06-21 12:38] LABS: CALCIUM 9.6 MG/DL (8.5-10.1)
[2022-06-21 12:43] LABS: CREATININE SERUM 1.08 MG/DL (0.60-1.30)
[2022-06-21] MEDS ORDERED: DIAZ2TAB PO (13:50)
[2022-06-21] MEDS ORDERED: ONDA4TAB11 PO (13:50)
[2022-06-21 14:03] VITALS: BP 154/98
== END 2022-06-21 14:05 | disposition home or self-care (01) ==
LOC: EDUNIT# 12:01 → ER 12:03
DX: R42 Dizziness and giddiness (principal); H73.013 Bullous myringitis, bilateral; Z96.22 Myringotomy tube(s) status
CPT/HCPCS: 36415; 80048; 85025; 93005